=== PATIENT | male | born 1990 ===

== ENCOUNTER → 2021-01-23 09:48 | Outpatient (BNVA) | payer BC, SELFPAY | PROVIDERS: Visit Provider Nurse Practitioner Family | DX: Z20.822 Contact with and (suspected) exposure to COVID-19 (principal) | CPT/HCPCS: 87635 ==

== ENCOUNTER → 2021-02-08 14:47 | Outpatient (BNVA) | payer BC, MEDICAID, SELFPAY | PROVIDERS: Visit Provider Family Medicine Adult Medicine | DX: R63.4 Abnormal weight loss (principal); Z83.3 Family history of diabetes mellitus | CPT/HCPCS: 80053; 83036; 84443; 85025 ==

== ENCOUNTER 2021-02-18 12:28 | Observation (INO) | payer MEDICAID, SELFPAY ==
[2021-02-18] VITALS (7 sets, daily range): BP systolic 122–176; BP diastolic 77–105; PULSE 75–123; RESP 16–23; TEMP 36.9–37.5; O2SAT 97–100; BMI 27.1; BMI 26.5
[2021-02-18 14:31] LABS: Basophils # 0.1 10^3/uL (0.0-0.1); Basophils % 0.3 %; Hematocrit 46.5 % (42.0-52.0); Hemoglobin 16.1 g/dL (11.7-16.6); Lymphocytes # 2.2 10^3/uL (0.8-4.8); Lymphocytes % 11.3 %; Mean Corpuscular HGB Conc 34.6 g/dL (30.0-36.0); Mean Corpuscular Hemoglobin 29.3 pg (28.0-34.0); Mean Corpuscular Volume 84.7 fl (80-94); Mean Platelet Volume 10.9 fL (7.4-10.4); Monocytes # 1.1 10^3/uL (0.2-0.9); Monocytes % 5.7 %; Neutrophils # 16.32 10^3/uL (1.8-7.7); Neutrophils % 82.3 %; Nucleated Red Blood Cells % 0 %; Platelet Count 361 10^3/cmm (130-400); Red Blood Count 5.49 10^6/uL (4.1-5.3); Red Cell Distribution Width 11.8 % (12.1-15.1); White Blood Count 19.8 10^3/uL (4.0-10.0)
[2021-02-18 14:45] LABS: Ketone (Acetest) Serum Negative (Negative)
[2021-02-18 14:50] LABS: Alanine Aminotransferase 16 U/L (0-41); Albumin Level 5.1 g/dL (3.5-5.2); Alkaline Phosphatase 87 IU/L (40-130); Anion Gap 23.1 (5-19); Aspartate Amino Transferase 12 U/L (0-40); Blood Urea Nitrogen 15 mg/dL (6-20); Calcium 10.2 mg/dL (8.5-10.5); Carbon Dioxide 25 mmol/L (22-29); Chloride 95 mmol/L (98-107); Globulin 3.9 g/dL (1.3-4.6); Glomerular Filtration Rate 113.5 mL/min (90-130); Glucose 216 mg/dL (65-115); Lipase 16 U/L (13-60); Osmolality Calculated 297 mOsm/kg (285-295); Potassium 3.1 mmol/L (3.5-5.1); Sodium 140 mmol/L (136-145); Total Bilirubin 1.3 mg/dL (0.15-1.2)
--- NOTE | 2021-02-18 15:00 | ED_ITS ---
HPI - Nausea/Vomiting/Diarrhea General: Chief complaint: Nausea/Vomiting/Diarrhea Stated complaint: Vomiting Time Seen by Provider: 02/18/21 14:46 History of Present Illness: HPI Narrative: 31-year-old male comes in with persistent nausea and vomiting. He has had it for the last week. He was recently started on Metformin but began shortly after he started taking it. He also has had a headache. He said some coffee-ground like emesis. No hematemesis. MD elicited complaint: nausea, vomiting and abdominal pain Onset (ago): day(s) Description of vomiting: coffee grounds Associated nausea: Yes Associated abdominal pain: Yes Location of pain: Diffuse Pain consistency: intermittent Severity: moderate Quality: cramping Exacerbating factors: vomiting Relieving factors: rest Context: new medication (Metformin) Associated symtoms: Reports bloating, anorexia, malaise and nausea; Denies altered mental status, anxiety, change in vision, chest pain, cough, diaphoresis, decreased urine output, dizziness, dysuria, epistaxis, fatigue, fecal incontinence, fevers/chills, headache(s), myalgias, numbness, palpitations, rash, short of breath, syncope, tenesmus, tinnitus or weakness Review of Systems Const: Reports: malaise; Denies: fatigue or diaphoresis Eyes: Denies: change in vision ENMT: Denies: tinnitus or epistaxis Card: Denies: chest pain, palpitations or syncope Resp: Denies: dyspnea, productive cough or non-productive cough GI: Reports: nausea and bloating; Denies: fecal incontinence : Denies: dysuria Skin/Breast: Denies: rash or pruritus Neuro: Denies: headache(s) or dizziness Psych: Denies: anxiety PFSH ED PFSH: Medical History Asthma Contusion of lower back Family history of diabetes mellitus Father and two siblings Vomiting and diarrhea Weight loss, unintentional Family History Other Diabetes Social History Smoking and tobacco status: never smoked Alcohol intake: current Alcohol intake frequency: holidays/special occasions only Marital status: Number of children: 2 Current occupational status: employed Physical Exam Const: COMMON NORMALS: no acute distress EXAM LIMITATIONS: no altered mental status GENERAL APPEARANCE: cooperative and comfortable ORIENTATION/CONSCIOUSNESS: Yes awake, Yes oriented to person, Yes oriented to place and Yes oriented to time HENMT: COMMON NORMALS: normocephalic, atraumatic and hearing grossly normal bilaterally HEAD & SCALP: normocephalic and atraumatic Neck/C-Spine: COMMON NORMALS: no JVD Resp: COMMON NORMALS: normal respiratory effort, No retractions, No use of accessory muscles and clear to auscultation bilaterally AUSCULTATION: clear to auscultation bilaterally Cardio: COMMON NORMALS: no JVD, regular rate, regular rhythm and No murmurs present (Cardio) RATE: regular rate RHYTHM: regular rhythm GI: COMMON NORMALS: No hepatosplenomegaly present AUSCULTATION: Yes normoactive bowel sounds PALPATION: Yes Tenderness to palpation present (GI) (Diffuse), No Guarding due to palpation present (GI) and Yes No hepatosplenomegaly present Extremity: COMMON NORMALS: normal to inspection, capillary refill normal, no clubbing, cyanosis or edema, no calf tenderness and no pedal edema Neuro: SENSORIUM/ORIENTATION: Yes oriented to person, Yes oriented to place and Yes oriented to time Skin: COMMON NORMALS: no rashes or lesions noted GENERAL SKIN EXAM: no rashes or lesions noted Course Vital Signs: Vital signs: Vital Signs Temperature 98.2 F 02/20/21 16:54 Pulse Rate 73 02/20/21 16:54 Respiratory Rate 17 02/20/21 16:54 Blood Pressure 160/83 02/20/21 16:54 Pulse Oximetry 97 02/20/21 16:54 MDM - Nausea/Vomiting/Diarrhea MDM Narrative: Medical decision making narrative: Despite fluids multiple antiemetics patient is still not able to keep anything down still having nausea and vomiting. Suspect some of this is his Metformin. Will put on observation discussed with hospitalist orders written Lab Data: Labs: Lab Results 02/18/21 02/18/21 02/18/21 13:02 14:15 14:15 WBC 19.8 10^3/uL H 10 ^3/uL (4.0-10.0) RBC 5.49 10^6/uL H 10 ^6/uL (4.1-5.3) Hgb 16.1 g/dL g/dL (11.7-16.6) Hct 46.5 % % (42.0-52.0) MCV 84.7 fl fl (80-94) MCH 29.3 pg pg (28.0-34.0) MCHC 34.6 g/dL g/dL (30.0-36.0) RDW 11.8 % L % (12.1-15.1) Plt Count 361 10^3/cmm 10^3 /cmm (130-400) MPV 10.9 fL H fL (7.4-10.4) Neut % (Auto) 82.3 % % Lymph % (Auto) 11.3 % % Powell % (Auto) 5.7 % % Eos % (Auto) 0.0 % % Baso % (Auto) 0.3 % % Neut # (Auto) 16.32 10^3/uL H 1 0^3/uL (1.8-7.7) Lymph # (Auto) 2.2 10^3/uL 10^3/ uL (0.8-4.8) Powell # (Auto) 1.1 10^3/uL H 10^ 3/uL (0.2-0.9) Eos # (Auto) 0.0 10^3/uL 10^3/ uL (0.0-0.8) Baso # (Auto) 0.1 10^3/uL 10^3/ uL (0.0-0.1) Nucleated RBC % (a uto) 0 % % Nucleated RBCs # 0.0 /100WBC /100W BC Specimen Type Sample Site ABG pH ABG pCO2 ABG pO2 ABG HCO3 ABG O2 Saturation ABG Base Excess Sina Test A-a O2 Gradient Hematocrit Hgb O2 Saturation Carboxyhemoglobin Methemoglobin Total Hemoglobin Ionized Calcium O2 Delivery Device FiO2 Dairy Cattle Farm Worker ID Sodium 140 mmol/L mmol/L (136-145) Potassium 3.1 mmol/L L mmol /L (3.5-5.1) Chloride 95 mmol/L L mmol/ L (98-107) Carbon Dioxide 25 mmol/L mmol/L (22-29) Anion Gap 23.1 H (5-19) BUN 15 mg/dL mg/dL (6-20) Creatinine 0.8 mg/dL mg/dL (0.7-1.2) GFR Calculation 113.5 mL/min mL/m in (90-130) Glucose 216 mg/dL H mg/dL (65-115) POC Glucose 230 mg/dL H mg/dL (70-110) Calculated Osmolal ity 297 mOsm/kg H mOs m/kg (285-295) Calcium 10.2 mg/dL mg/dL (8.5-10.5) Total Bilirubin 1.3 mg/dL H mg/dL (0.15-1.2) AST 12 U/L U/L (0-40) ALT 16 U/L U/L (0-41) Alkaline Phosphata se 87 IU/L IU/L (40-130) Total Protein 9.0 g/dL H g/dL (6.6-8.7) Albumin 5.1 g/dL g/dL (3.5-5.2) Globulin 3.9 g/dL g/dL (1.3-4.6) Lipase 16 U/L U/L (13-60) Gastric Occult Blo od Serum Ketones 02/18/21 02/18/21 02/18/21 14:15 15:15 15:33 WBC RBC Hgb Hct MCV MCH MCHC RDW Plt Count MPV Neut % (Auto) Lymph % (Auto) Powell % (Auto) Eos % (Auto) Baso % (Auto) Neut # (Auto) Lymph # (Auto) Powell # (Auto) Eos # (Auto) Baso # (Auto) Nucleated RBC % (a uto) Nucleated RBCs # Specimen Type Arterial Sample Site Brachial, right ABG pH 7.59 H* (7.35-7.45) ABG pCO2 23.8 mmHg L mmHg (35-45) ABG pO2 103.0 mmHg H mmHg (80.0-100.0) ABG HCO3 23.0 mmol/L mmol/ L (22-26) ABG O2 Saturation 99.2 ABG Base Excess 3.3 mmol/L H mmol /L (-2.0-2.0) Sina Test N/a A-a O2 Gradient 2.0 mmHg L mmHg (5-10) Hematocrit 51.4 % % (42-52) Hgb O2 Saturation 97.9 % % (95-100) Carboxyhemoglobin 0.7 %THgb %THgb (0.4-20.1) Methemoglobin 0.7 % % (0.4-1.5) Total Hemoglobin 16.8 g/dL g/dL (14-18) Ionized Calcium 1.2 mmol/L mmol/L (1.1-1.4) O2 Delivery Device Not Reportable FiO2 21.0 % % Dairy Cattle Farm Worker ID Rieri Sodium 142.0 mmol/L mmol /L (131-143) Potassium 3.2 mmol/L L mmol /L (3.5-5.0) Chloride Carbon Dioxide Anion Gap BUN Creatinine GFR Calculation Glucose 237.0 mg/dL H mg/ dL (70-115) POC Glucose Calculated Osmolal ity Calcium Total Bilirubin AST ALT Alkaline Phosphata se Total Protein Albumin Globulin Lipase Gastric Occult Blo od Positive H (Negative) Serum Ketones Negative (Negative) Discharge Plan Discharge Admit Provider: Karmen Quintana Condition: Stable Discharge Orders: Discharge Order (Routine); Ordered 02/20/21 Ordered By: Karmen Quintana Discharge Diet: Diabetic and GI Soft Discharge Activity: Resume usual activity Coding Level of Care Code ED Vocational Guidance Counselor for Chg Fwd Exam Comprehensive
[2021-02-18 15:24] LABS: ABG PCO2 23.8 mmHg (35-45); Arterial Blood Gas Hematocrit 51.4 % (42-52); Base Excess ABG 3.3 mmol/L (-2.0-2.0); Blood Gas Sample Site Brachial, right; Blood Gas Sample Type Arterial; Carboxyhemoglobin 0.7 %THgb (0.4-20.1); HGB O2 Sat 97.9 % (95-100); Ionized Calcium Level - ABG 1.2 mmol/L (1.1-1.4); Methemoglobin 0.7 % (0.4-1.5); Oxygen Saturation ABG 99.2; Potassium Level - ABG 3.2 mmol/L (3.5-5.0); Total Hemoglobin 16.8 g/dL (14-18)
[2021-02-18 15:28] LABS: ABG PH Result 7.59 (7.35-7.45)
[2021-02-18] MEDS: morphine 4 mg/mL SDV 1 mL IVP (15:32)
[2021-02-18] MEDS: promethazine 25 mg/mL SDV 1 mL IM (15:33)
[2021-02-18] MEDS: sodium chloride 0.9% 1,000 ML 999 ML IV (15:33)
[2021-02-18 16:06] LABS: Gastricult Occult Blood Positive (Negative)
--- NOTE | 2021-02-18 18:14 | P.HP_ITS ---
Providers/Chief Complaint Chief Complaint: Vomiting History of Present Illness Obdulio Barkley is a 31 year old male with history of asthma on albuterol inhaler as needed and recently diagnosed with diabetes 1 week ago for next of the ER with nausea vomiting that he says started about a week ago. He said 1 week ago it got worse where he has been vomiting every day but overall it has been going on for almost a year now. He has also lost a lot of weight and unable to keep any water or food down. He says 1 week ago he started to worsen and today was the worst day and therefore he came to the ER. He has never had an endoscopy or colonoscopy before. He denies having any of these problems in his family members. He does state that his brother and father have diabetes. He says he started taking metformin today and feels that may have exacerbated the nausea vomiting. Patient is a former smoker he quit 2 months ago is a former alcohol drinker quit 2 months ago and does smoke weed from time to time but has recently has not had any. Denies having any blood in the stool he did have an episode of emesis with coffee-ground material in the ER today. FOBT done by ER was positive. Denies chest pain, shortness of breath. Does endorse some epigastric pain but attributes it to the continuous retching that he is having. Has not had any fevers at home or recent illnesses. Hemoglobin A1c checked recently 7.0. He did have a little bit of diarrhea which has resolved by now. When seen in the room by medicine hospitalist patient was actively shaking. ED course: On arrival to ER blood pressure 142/90, saturating 100% on room air, tachycardic 123, temperature 99.5. Serum ketones negative, anion gap 23.1, WBC 19.5, potassium 3.1. He was given morphine 4 mg, 80 mg IV Protonix, Phenergan 25 mg once. Due to FOBT being positive Dr. Bee was called for potential endoscopy in the morning. Patient has been kept n.p.o. Urine culture was also ordered including urinalysis but patient refused to give a urine sample as per nursing staff. Review of Systems General: Reports: 10 or more systems reviewed and unremarkable except in HPI and below Medications/Allergies Home Medications Medication Instructions Recorded Confirmed Last Taken Type albuterol sulfate 90 mcg/actuation 2 puff INHALATION Q6H PRN #8.5 g 01/25/21 02/18/21 Unknown Rx aerosol inhaler metformin 500 mg PO DAILY@12 02/18/21 02/18/21 02/17/21 History Allergies Allergy/AdvReac Type Severity Reaction Status Date / Time Penicillins Allergy Unknown unknown Verified 02/18/21 16:03 PFSH Acute PFSH: Medical History Asthma Contusion of lower back Family history of diabetes mellitus Father and two siblings Vomiting and diarrhea Weight loss, unintentional Family History Other Diabetes Social History Smoking and tobacco status: never smoked Alcohol intake: current Alcohol intake frequency: holidays/special occasions only Marital status: Number of children: 2 Current occupational status: employed Vitals/I&O/Wt Last Vital Signs Temp 99.5 F 02/18/21 12:52 Pulse 83 02/18/21 15:58 Resp 18 02/18/21 15:58 BP 162/95 02/18/21 15:58 Pulse Ox 98 02/18/21 15:58 Weight last 48 hrs Weight 69.4 kg Physical Exam Narrative: EXAM NARRATIVE: General: Alert oriented x3, patient seen sitting up in bed holding a tray and continuously spitting into it due to nausea. He also vomited while I was in the room. Vomitus was clear with no evidence of any blood. There is another tray in the room with coffee-ground emesis. HEENT: Normocephalic, atraumatic, EOMI, breathing room air Cardio: Regular rate rhythm, normal S1-S2, no murmurs rubs gallops, Respiratory: Good bilateral air entry, no wheezes no rhonchi appreciated GI: Abdomen soft, tender to deep palpation in epigastric region, nondistended, bowel sounds normoactive. Behavior: Appropriate and cooperative, appears a little worried Extremities: Pulses 2+, no edema, no cyanosis Data : 02/19/21 05:04 02/19/21 05:04 A&P Assessment and plan (1) Vomiting: Status: Acute (2) Coffee ground emesis: Status: Acute (3) Weight loss, unintentional: Status: Acute (4) Asthma: Status: Acute (5) Occult blood positive stool: Status: Acute Additional A&P Information #Possible cyclic vomiting syndrome from marijuana use #Possible Laura-Cates tear #Coffee-ground emesis mixed with some fresh blood -Unclear if patient has recently used marijuana but he denied it. His vomiting has been going on for about a year worsened last week and today was worse after taking Metformin. It could be possible that he has a component of cyclic vomiting syndrome from marijuana use. Urine tox was ordered but patient refused to give a urine sample. -Protonix 40 twice daily ?Keep patient n.p.o. We will discuss with GI for potential endoscope. With the continuous vomiting and retching that could be a possible reason for his coffee-ground emesis with some fresh blood. However I believe he would benefit from endoscope just to rule out other causes. ?He has also had unintentional weight loss which diabetes could explain. Unsure at this point if it is type I or type II. I will refer him to endocrinology as an outpatient upon discharge to follow-up. ?Patient does not appear to be in DKA at this time. He does appear very dehydrated we will give him IV fluids. ?Zofran every 4 hours for nausea. If that does not control the nausea we can add Phenergan -Lactated Ringer 100 cc/h -We will place patient on low-dose sliding scale at this time. -His last labs are from this afternoon 2 PM. I will repeat all his labs at this time. I will also order a CT chest abdomen pelvis due to patient's physical exam findings of abdominal pain and given his high white count which could very well be a stress response. -I have also ordered urinalysis with culture but patient has refused to give a sample. We will check blood cultures. -Patient was shaking quite a bit when seen in the room unsure if withdrawing from something at this point. I did give 1 dose of Ativan 1 mg. #Asthma ?Seems to be stable at this point. Patient occasionally uses inhaler and does not have any nighttime awakenings. I will order duo nebs for him as needed. #Fluids: LR 100 cc/h Electrolyte: Replete as needed Nutrition: N.p.o. Activity: As tolerated DVT prophylaxis: Mechanical prophylaxis at this point we will hold off on pharmacological at this time. Attestations Medical Necessity Statement*: Expected to cross greater than 48 hours unless improves earlier. Time Spent in Patient Care: 16 - 35 minutes Coding Level of Care Code Acute Business Intelligence Architect for Browng Fwd Diagnoses Vomiting R11.10 Coffee ground emesis K92.0 Weight loss, unintentional R63.4 Asthma J45.909 Occult blood positive stool R19.5
[2021-02-18] MEDS: pantoprazole 40 mg SDV 80 MG IVP (18:41)
--- NOTE | 2021-02-18 19:32 | PC.NURSE ---
Med Surg concerned with pt's BP. Dr. Quintana made aware and states that pt is fine to go to floor. Attempted to call med surg, no answer.
--- NOTE | 2021-02-18 19:43 | CTR_ITS ---
PROCEDURE INFORMATION: Exam: CT Chest With Contrast; Diagnostic Exam date and time: 02/18/2021 7:43 PM Age: 31 years old Clinical indication: Nausea and vomiting; Abdominal pain; Fever; Right-sided; Additional info: Intractable n/v, epigastric pain TECHNIQUE: Imaging protocol: Diagnostic computed tomography of the chest with contrast. Radiation optimization: All CT scans at this facility use at least one of these dose optimization techniques: automated exposure control; mA and/or kV adjustment per patient size (includes targeted exams where dose is matched to clinical indication); or iterative reconstruction. Contrast material: OMNI 300; Contrast volume: 95 ml; Contrast route: INTRAVENOUS (IV); COMPARISON: No relevant prior studies available. RADIATION DOSE METRICS: Total DLP (mGy-cm): 1400.28 FINDINGS: Lungs: Bilateral dependent atelectasis versus infiltrate. Pleural spaces: Unremarkable. No pneumothorax. No pleural effusion. Heart: Unremarkable. No cardiomegaly. No pericardial effusion. Aorta: Unremarkable. No aortic aneurysm. Lymph nodes: Unremarkable. No enlarged lymph nodes. Bones/joints: Unremarkable. No acute fracture. Soft tissues: Unremarkable. IMPRESSION: Bilateral dependent atelectasis versus infiltrate. PROCEDURE INFORMATION: Exam: CT Abdomen And Pelvis With Contrast Exam date and time: 02/18/2021 7:43 PM Age: 31 years old Clinical indication: Nausea and vomiting; Abdominal pain; Fever; Right-sided; Additional info: Intractable n/v, epigastric pain TECHNIQUE: Imaging protocol: Computed tomography of the abdomen and pelvis with contrast. Radiation optimization: All CT scans at this facility use at least one of these dose optimization techniques: automated exposure control; mA and/or kV adjustment per patient size (includes targeted exams where dose is matched to clinical indication); or iterative reconstruction. Contrast material: OMNI 300; Contrast volume: 95 ml; Contrast route: INTRAVENOUS (IV); COMPARISON: No relevant prior studies available. RADIATION DOSE METRICS: Total DLP (mGy-cm): 1400.28 FINDINGS: Liver: Hepatic steatosis. Gallbladder and bile ducts: Normal. No calcified stones. No ductal dilation. Pancreas: Normal. No ductal dilation. Spleen: Normal. No splenomegaly. Adrenal glands: Normal. No mass. Kidneys and ureters: Normal. No hydronephrosis. Stomach and bowel: Unremarkable. No obstruction. No mucosal thickening. Appendix: No evidence of appendicitis. Intraperitoneal space: Unremarkable. No free air. No significant fluid collection. Vasculature: Unremarkable. No abdominal aortic aneurysm. Lymph nodes: Unremarkable. No enlarged lymph nodes. Urinary bladder: Unremarkable as visualized. Reproductive: Unremarkable as visualized. Bones/joints: Unremarkable. No acute fracture. Soft tissues: Unremarkable. CT/CT chest abd pel w con* IMPRESSION: 1. Negative for acute inflammatory process in the abdomen or pelvis. 2. Hepatic steatosis. Radiation Dose CTDIVOL = (mGy): DLP = 1400.28~1400.28 (mGy-cm)
--- NOTE | 2021-02-18 19:43 | ECG_ITS ---
[facility] Test Date: 2021-02-18 Pat Name: Obdulio Barkley Department: Room: 254 Gender: Male Ammonia Nitrate Operator: : 1990 Requested By: Karmen Quintana Order Number: [id number] Dawn MD: Geri Arauz M.D. Measurements Intervals [place] Rate: 80 P: 35 MA: 169 QRS: 17 QRSD: 98 T: 12 QT: 361 QTc: 418 Interpretive Statements SINUS RHYTHM No previous ECG available for comparison Electronically Signed On 02-18-2021 23:51:50 CDT by Geri Arauz M.D. [email or web address]
[2021-02-18] MEDS: ondansetron 2 mg/ML SDV 2 mL 4 MG IVP (20:01)
[2021-02-18] MEDS: pantoprazole 40 mg SDV IVP (20:01)
[2021-02-18] MEDS: LORazepam 2 mg/mL INJ 1 mL 1 MG IVP (20:40)
[2021-02-18] MEDS: lactated ringers 1,000 ML 100 ML IV (20:41)
[2021-02-18 20:42] LABS: Glucose Point of Care 230 mg/dL (70-110)
[2021-02-18 20:48] LABS: Base Excess VBG 1.2 mmol/L (-3.0-3.0); Blood Gas Operator Identificat glc; Blood Gas Sample Type Venous; PCO2 VBG 36.4 mmHg (41-51); PO2 VBG 44.3 mmHg (25-40); Venous Blood Gas Hematocrit 46.1 % (42-52); pH VBG 7.45 (7.32-7.42)
[2021-02-18 21:01] LABS: Basophils # 0.1 10^3/uL (0.0-0.1); Basophils % 0.3 %; Hematocrit 39.9 % (42.0-52.0); Hemoglobin 13.8 g/dL (11.7-16.6); Lymphocytes # 2.1 10^3/uL (0.8-4.8); Mean Corpuscular HGB Conc 34.6 g/dL (30.0-36.0); Mean Corpuscular Hemoglobin 29.9 pg (28.0-34.0); Mean Corpuscular Volume 86.4 fl (80-94); Mean Platelet Volume 10.9 fL (7.4-10.4); Monocytes # 1.2 10^3/uL (0.2-0.9); Monocytes % 6.3 %; Neutrophils # 15.31 10^3/uL (1.8-7.7); Neutrophils % 81.8 %; Nucleated Red Blood Cells % 0 %; Platelet Count 284 10^3/cmm (130-400); Red Blood Count 4.62 10^6/uL (4.1-5.3); White Blood Count 18.7 10^3/uL (4.0-10.0)
[2021-02-18 21:06] LABS: Lactic Sepsis W/Reflex 1.5 mmol/L (0.5-2.2)
[2021-02-18 21:09] LABS: Ketone (Acetest) Serum Negative (Negative)
[2021-02-18 21:18] LABS: Troponin T (5th) Once 14 ng/L (0-15)
[2021-02-18 21:31] LABS: Glucose Point of Care 165 mg/dL (70-110)
[2021-02-18 21:31] LABS: Alanine Aminotransferase 12 U/L (0-41); Albumin Level 4.1 g/dL (3.5-5.2); Alkaline Phosphatase 67 IU/L (40-130); Anion Gap 17.6 (5-19); Aspartate Amino Transferase 10 U/L (0-40); Blood Urea Nitrogen 13 mg/dL (6-20); Calcium 8.7 mg/dL (8.5-10.5); Carbon Dioxide 23 mmol/L (22-29); Chloride 104 mmol/L (98-107); Globulin 3.3 g/dL (1.3-4.6); Glomerular Filtration Rate 158.2 mL/min (90-130); Glucose 169 mg/dL (65-115); Osmolality Calculated 296 mOsm/kg (285-295); Phosphorus 3.7 mg/dL (2.5-4.5); Potassium 3.6 mmol/L (3.5-5.1); Sodium 141 mmol/L (136-145); Total Protein 7.4 g/dL (6.6-8.7)
[2021-02-18] MEDS: iohexol 300 mg/mL 100 mL Btl IV (21:47)
[2021-02-18 22:24] LABS: Procalcitonin 0.03 ng/mL (0-0.5)
[2021-02-19] VITALS (8 sets, daily range): BP systolic 116–142; BP diastolic 58–83; PULSE 75–97; RESP 14–20; TEMP 36.5–37.2; O2SAT 96–98
[2021-02-19 05:25] LABS: Basophils # 0.1 10^3/uL (0.0-0.1); Basophils % 0.3 %; Eosinophils % 0.2 %; Hematocrit 39.1 % (42.0-52.0); Hemoglobin 13.7 g/dL (11.7-16.6); Lymphocytes # 2.6 10^3/uL (0.8-4.8); Lymphocytes % 15.7 %; Mean Corpuscular Hemoglobin 30.2 pg (28.0-34.0); Mean Corpuscular Volume 86.3 fl (80-94); Mean Platelet Volume 10.6 fL (7.4-10.4); Monocytes # 1.1 10^3/uL (0.2-0.9); Monocytes % 6.6 %; Neutrophils % 76.8 %; Nucleated Red Blood Cells % 0 %; Platelet Count 271 10^3/cmm (130-400); Red Blood Count 4.53 10^6/uL (4.1-5.3); Red Cell Distribution Width 12.3 % (12.1-15.1); White Blood Count 16.4 10^3/uL (4.0-10.0)
[2021-02-19 06:13] LABS: Alanine Aminotransferase 11 U/L (0-41); Albumin Level 4.1 g/dL (3.5-5.2); Alkaline Phosphatase 71 IU/L (40-130); Anion Gap 14.6 (5-19); Aspartate Amino Transferase 11 U/L (0-40); Blood Urea Nitrogen 11 mg/dL (6-20); Carbon Dioxide 25 mmol/L (22-29); Chloride 103 mmol/L (98-107); Chol HDL Ratio 3.42 mg/dL (1.0-5.00); Cholesterol 130 mg/dL (0-200); Globulin 3.2 g/dL (1.3-4.6); Glomerular Filtration Rate 132.4 mL/min (90-130); Glucose 134 mg/dL (65-115); HDL Cholesterol 38 mg/dL (60-100); LDL Cholesterol Calculated 69 mg/dL (50-129); LDL HDL Ratio 1.82 RATIO (0.00-3.22); Osmolality Calculated 289 mOsm/kg (285-295); Potassium 3.6 mmol/L (3.5-5.1); Sodium 139 mmol/L (136-145); Thyroid Stimulating Hormone 0.66 uIU/mL (0.27-4.20); Total Bilirubin 1.1 mg/dL (0.15-1.2); Total Protein 7.3 g/dL (6.6-8.7); Triglycerides 117 mg/dL (0-150)
[2021-02-19 06:23] LABS: Glucose Point of Care 134 mg/dL (70-110)
[2021-02-19 06:41] LABS: Estmated Average Glucose 151; Hemoglobin A1C 6.9 % (4.0-6.0)
--- NOTE | 2021-02-19 08:04 | PM.PN ---
Subjective Subjective: Interval history: Seen this morning. He will be going for endoscope at 1:[address] Bee. He states he feels better and has not had any more vomiting. He slept well last night. Vitals/I&O/Wt Last Vital Signs Temp 99.0 F 02/19/21 07:41 Pulse 93 02/19/21 07:41 Resp 14 02/19/21 07:41 BP 142/82 02/19/21 07:41 Pulse Ox 97 02/19/21 07:41 02/18/21 02/19/21 02/19/21 22:59 06:59 14:59 Intake Total 1000 / 1000 Output Total 0 / 0 Balance 1000 / 1000 0 / 1000 Weight last 48 hrs Weight 68.039 kg Weight 69.4 kg Physical Exam Narrative: EXAM NARRATIVE: General: Alert oriented x3, laying in bed appearing better than yesterday and comfortable. HEENT: Normocephalic, atraumatic, EOMI, breathing room air Cardio: Regular rate rhythm, normal S1-S2, no murmurs rubs gallops, Respiratory: Good bilateral air entry, no wheezes no rhonchi appreciated GI: Abdomen soft, mildly tender to deep palpation in epigastric region, nondistended, bowel sounds normoactive. exam improved from yesterday Behavior: Appropriate and cooperative, appears a little worried Extremities: Pulses 2+, no edema, no cyanosis Data : 02/19/21 05:04 02/19/21 05:04 Micro: Microbiology 02/18/21 20:35 Blood Culture - Preliminary Blood SPECIMEN COLLECTED 02/18/21 20:40 Blood Culture - Preliminary Blood SPECIMEN COLLECTED A&P Assessment and plan (1) Vomiting: Status: Acute (2) Coffee ground emesis: Status: Acute (3) Weight loss, unintentional: Status: Acute (4) Asthma: Status: Acute (5) Occult blood positive stool: Status: Acute Additional A&P Information #Possible cyclic vomiting syndrome from marijuana use #Gastritis #Possible Laura-Cates tear #Coffee-ground emesis mixed with some fresh blood -Unclear if patient has recently used marijuana but he denied it. His vomiting has been going on for about a year worsened last week and today was worse after taking Metformin. It could be possible that he has a component of cyclic vomiting syndrome from marijuana use. Urine tox was ordered but patient refused to give a urine sample. -Protonix 40 twice daily ?Keep patient n.p.o. Will go for endoscope today. ?He has also had unintentional weight loss which diabetes could explain. Unsure at this point if it is type I or type II. I will refer him to endocrinology as an outpatient upon discharge to follow-up. ?Will start clear liquids post endoscope. ?Zofran every 4 hours for nausea. -We will place patient on low-dose sliding scale at this time. -Urine positive for benzo, opiate and THC. #Asthma ?Seems to be stable at this point. Patient occasionally uses inhaler and does not have any nighttime awakenings. I will order duo nebs for him as needed. #Fluids: none Electrolyte: Replete as needed Nutrition: advance diet to clear liquids Activity: As tolerated DVT prophylaxis: Mechanical prophylaxis at this point we will hold off on pharmacological at this time. Attestations Medical Necessity Statement*: possible dc in next 24 hours. awaiting results of h.pylori test. Coding Level of Care Code Acute Powertrain Control Systems Engineer for Erica Fwd Diagnoses Vomiting R11.10 Coffee ground emesis K92.0 Weight loss, unintentional R63.4 Asthma J45.909 Occult blood positive stool R19.5
[2021-02-19] MEDS: lactated ringers 1,000 ML 100 ML IV ×3 (09:32→23:21)
[2021-02-19 09:34] LABS: Add Urine Microscopic? NO; Charge for UA Resulting for Rev
[2021-02-19 09:43] LABS: Bilirubin Urine Neg (Negative); Blood Urine Neg (Negative); Glucose Urine UA 1+ (Normal); Ketones Urine 1+ (Negative); Leukocyte Esterase Urine Negative (Negative); Nitrate Urine Negative (Negative); Protein Urine Neg (Negative); Urine Appearance Clear (CLEAR); Urine Color Yellow (Yellow); Urobilinogen Urine 4 mg/dL (Negative); pH Urine 7 (5-7)
[2021-02-19 09:51] LABS: Amphetamines Screen Urine Negative (Negative); Barbiturates Screen Urine Negative (Negative); Benzodiazepines Screen Urine Positive (Negative); Cocaine Screen Urine Negative (Negative); Opiate Screen Urine Positive (Negative); PCP Screen Urine Negative (Negative); THC Screen Urine Positive (Negative)
--- NOTE | 2021-02-19 10:17 | ANES.PREANE2 ---
Pre-Anesthetic Assessment Pre-Anesthetic Assessment: Height/Weight: Height 1.6 m Weight 68.039 kg Temp Pulse Resp BP Pulse Ox 98.7 F 90 18 138/83 98 02/19/21 10:10 02/19/21 10:10 02/19/21 10:10 02/19/21 10:10 02/19/21 10:10 Preop Diagnosis: coffee ground emesis Proposed Procedure: Operation Date: 02/19/21 11:30 Proposed Procedures p EGD(Not Applicable) - Yuri Bee MD Familial anesthetic complications: none Was Beta Martina taken within 24 hours: N/A Was Clonidine taken within 24 hours: N/A Last intake: Intake Last Liquid Date 02/17/21 Last Liquid Time 09:00 Last Solid Date 02/17/21 Last Solid Time 09:00 Social: Social History: Tobacco (quit 2 months ago) and No alcohol Exam: Pre-Anes Outpt Exam: alert, oriented x 3, clear to auscultation bilaterally and regular rate & rhythm Airway: Submandibular: WNL Cervical ROM: WNL MP: 1 Dentition: Full Pulmonary: Pulmonary: Asthma CV/HEM: CV/HEM: None reported : : None reported Hepatic: Hepatic: None reported GI: GI: GERD Metabolic: Metabolic: DM Musc/skel: Musc/skel: None reported Neuropsych: Neuropsych: None reported Anesthetic Plan: ASA status: 2 Anesthesia: MAC Risk of > 500 ml blood loss (7ml/kg in children): No Meds/Allergies Current Medications: Current Medications Generic Name Dose Route Start Last Admin Trade Name Freq PRN Reason Stop Dose Admin Lactated Ringer's 1,000 mls @ 100 m ls/hr 02/18/21 19:45 02/19/21 09:32 Lactated Ringers IV 100 mls/hr .Q10H AAMIR Administration Insulin Human Lisp ro 0 unit 02/19/21 08:00 02/19/21 08:25 Insulin Lispro 1 00 Unit/1 Ml SUBCUT Not Given TIDWM AAMIR Protocol Ondansetron HCl 4 mg 02/18/21 19:52 02/18/21 20:01 Ondansetron 2 Mg /Ml Sdv 2 Ml IVP 4 mg Q4H PRN Administration NAUSEA AND VOMITI NG Pantoprazole Sodiu m 40 mg 02/18/21 19:45 02/18/21 20:01 Pantoprazole 40 Mg Sdv IVP 40 mg Q24H AAMIR Administration PFSH Anesthesia PFSH: Medical History Asthma Contusion of lower back Family history of diabetes mellitus Father and two siblings Vomiting and diarrhea Weight loss, unintentional Family History Other Diabetes Social History Smoking and tobacco status: never smoked Alcohol intake: current Alcohol intake frequency: holidays/special occasions only Marital status: Number of children: 2 Current occupational status: employed Data Anesthesia CBC & Chem 7: 02/19/21 05:04 02/19/21 05:04 Other Labs: Laboratory Results - last 48 hr 02/18/21 02/18/21 02/18/21 13:02 14:15 14:15 WBC 19.8 H RBC 5.49 H Hgb 16.1 Hct 46.5 MCV 84.7 MCH 29.3 MCHC 34.6 RDW 11.8 L Plt Count 361 MPV 10.9 H Neut % (Auto) 82.3 Lymph % (Auto) 11.3 [place] % (Auto) 5.7 Eos % (Auto) 0.0 Baso % (Auto) 0.3 Neut # (Auto) 16.32 H Lymph # (Auto) 2.2 [place] # (Auto) 1.1 H Eos # (Auto) 0.0 Baso # (Auto) 0.1 Nucleated RBC % (auto) 0 Nucleated RBCs # 0.0 Specimen Type Sample Site ABG pH ABG pCO2 ABG pO2 ABG HCO3 ABG O2 Saturation ABG Base Excess Sina Test VBG pH VBG pCO2 VBG pO2 VBG HCO3 VBG Base Excess VBG Hematocrit A-a O2 Gradient Hematocrit Hgb O2 Saturation Carboxyhemoglobin Methemoglobin Total Hemoglobin Ionized Calcium O2 Delivery Device FiO2 Flatwork Tier ID Sodium 140 Potassium 3.1 L Chloride 95 L Carbon Dioxide 25 Anion Gap 23.1 H BUN 15 Creatinine 0.8 GFR Calculation 113.5 Glucose 216 H POC Glucose 230 H Estimat Average Glucose Hemoglobin A1c Calculated Osmolality 297 H Lactic Acid Calcium 10.2 Phosphorus Magnesium Total Bilirubin 1.3 H AST 12 ALT 16 Alkaline Phosphatase 87 Troponin T Gen 5 ng/L Total Protein 9.0 H Albumin 5.1 Globulin 3.9 Triglycerides Cholesterol LDL Cholesterol, Calc HDL Cholesterol LDL/HDL Ratio Cholesterol/HDL Ratio Lipase 16 Procalcitonin TSH Urine Color Urine Appearance Urine pH Ur Specific [place] Urine Protein Urine Glucose (UA) Urine Ketones Urine Blood Urine Nitrate Urine Bilirubin Urine Urobilinogen Ur Leukocyte Esterase Gastric Occult Blood Urine Opiates Screen Ur Barbiturates Screen Ur Phencyclidine Scrn Ur Amphetamines Screen U Benzodiazepines Scrn Urine Cocaine Screen U Marijuana (THC) Screen Serum Ketones 02/18/21 02/18/21 02/18/21 14:15 15:15 15:33 WBC RBC Hgb Hct MCV MCH MCHC RDW Plt Count MPV Neut % (Auto) Lymph % (Auto) [place] % (Auto) Eos % (Auto) Baso % (Auto) Neut # (Auto) Lymph # (Auto) [place] # (Auto) Eos # (Auto) Baso # (Auto) Nucleated RBC % (auto) Nucleated RBCs # Specimen Type Arterial Sample Site Brachial, right ABG pH 7.59 H* ABG pCO2 23.8 L ABG pO2 103.0 H ABG HCO3 23.0 ABG O2 Saturation 99.2 ABG Base Excess 3.3 H Sina Test N/a VBG pH VBG pCO2 VBG pO2 VBG HCO3 VBG Base Excess VBG Hematocrit A-a O2 Gradient 2.0 L Hematocrit 51.4 Hgb O2 Saturation 97.9 Carboxyhemoglobin 0.7 Methemoglobin 0.7 Total Hemoglobin 16.8 Ionized Calcium 1.2 O2 Delivery Device Not Reportable FiO2 21.0 Flatwork Tier ID Rieri Sodium 142.0 Potassium 3.2 L Chloride Carbon Dioxide Anion Gap BUN Creatinine GFR Calculation Glucose 237.0 H POC Glucose Estimat Average Glucose Hemoglobin A1c Calculated Osmolality Lactic Acid Calcium Phosphorus Magnesium Total Bilirubin AST ALT Alkaline Phosphatase Troponin T Gen 5 ng/L Total Protein Albumin Globulin Triglycerides Cholesterol LDL Cholesterol, Calc HDL Cholesterol LDL/HDL Ratio Cholesterol/HDL Ratio Lipase Procalcitonin TSH Urine Color Urine Appearance Urine pH Ur Specific [place] Urine Protein Urine Glucose (UA) Urine Ketones Urine Blood Urine Nitrate Urine Bilirubin Urine Urobilinogen Ur Leukocyte Esterase Gastric Occult Blood Positive H Urine Opiates Screen Ur Barbiturates Screen Ur Phencyclidine Scrn Ur Amphetamines Screen U Benzodiazepines Scrn Urine Cocaine Screen U Marijuana (THC) Screen Serum Ketones Negative 02/18/21 02/18/21 02/18/21 20:35 20:40 20:40 WBC 18.7 H RBC 4.62 Hgb 13.8 Hct 39.9 L MCV 86.4 MCH 29.9 MCHC 34.6 RDW 12.0 L Plt Count 284 MPV 10.9 H Neut % (Auto) 81.8 Lymph % (Auto) 11.0 [place] % (Auto) 6.3 Eos % (Auto) 0.0 Baso % (Auto) 0.3 Neut # (Auto) 15.31 H Lymph # (Auto) 2.1 [place] # (Auto) 1.2 H Eos # (Auto) 0.0 Baso # (Auto) 0.1 Nucleated RBC % (auto) 0 Nucleated RBCs # 0.0 Specimen Type Venous Sample Site Not Reportable ABG pH ABG pCO2 ABG pO2 ABG HCO3 ABG O2 Saturation ABG Base Excess Sina Test N/a VBG pH 7.45 H VBG pCO2 36.4 L VBG pO2 44.3 H VBG HCO3 25.0 VBG Base Excess 1.2 VBG Hematocrit 46.1 A-a O2 Gradient Hematocrit Hgb O2 Saturation Carboxyhemoglobin Methemoglobin Total Hemoglobin Ionized Calcium O2 Delivery Device Not Reportable FiO2 [place] Tier ID glc Sodium 141 Potassium 3.6 Chloride 104 Carbon Dioxide 23 Anion Gap 17.6 BUN 13 Creatinine 0.6 L GFR Calculation 158.2 H Glucose 169 H POC Glucose Estimat Average Glucose Hemoglobin A1c Calculated Osmolality 296 H Lactic Acid Calcium 8.7 Phosphorus 3.7 Magnesium 2.0 Total Bilirubin 1.0 AST 10 ALT 12 Alkaline Phosphatase 67 Troponin T Gen 5 ng/L Total Protein 7.4 Albumin 4.1 Globulin 3.3 Triglycerides Cholesterol LDL Cholesterol, Calc HDL Cholesterol LDL/HDL Ratio Cholesterol/HDL Ratio Lipase Procalcitonin 0.03 TSH Urine Color Urine Appearance Urine pH Ur Specific [place] Urine Protein Urine Glucose (UA) Urine Ketones Urine Blood Urine Nitrate Urine Bilirubin Urine Urobilinogen Ur Leukocyte Esterase Gastric Occult Blood Urine Opiates Screen Ur Barbiturates Screen Ur Phencyclidine Scrn Ur Amphetamines Screen U Benzodiazepines Scrn Urine Cocaine Screen U Marijuana (THC) Screen Serum Ketones 02/18/21 02/18/21 02/18/21 20:40 20:40 20:40 WBC RBC Hgb Hct MCV MCH MCHC RDW Plt Count MPV Neut % (Auto) Lymph % (Auto) [place] % (Auto) Eos % (Auto) Baso % (Auto) Neut # (Auto) Lymph # (Auto) [place] # (Auto) Eos # (Auto) Baso # (Auto) Nucleated RBC % (auto) Nucleated RBCs # Specimen Type Sample Site ABG pH ABG pCO2 ABG pO2 ABG HCO3 ABG O2 Saturation ABG Base Excess Sina Test VBG pH VBG pCO2 VBG pO2 VBG HCO3 VBG Base Excess VBG Hematocrit A-a O2 Gradient Hematocrit Hgb O2 Saturation Carboxyhemoglobin Methemoglobin Total Hemoglobin Ionized Calcium O2 Delivery Device FiO2 Flat[place] Tier ID Sodium Potassium Chloride Carbon Dioxide Anion Gap BUN Creatinine GFR Calculation Glucose POC Glucose Estimat Average Glucose Hemoglobin A1c Calculated Osmolality Lactic Acid 1.5 Calcium Phosphorus Magnesium Total Bilirubin AST ALT Alkaline Phosphatase Troponin T Gen 5 ng/L 14 Total Protein Albumin Globulin Triglycerides Cholesterol LDL Cholesterol, Calc HDL Cholesterol LDL/HDL Ratio Cholesterol/HDL Ratio Lipase Procalcitonin TSH Urine Color Urine Appearance Urine pH Ur Specific [place] Urine Protein Urine Glucose (UA) Urine Ketones Urine Blood Urine Nitrate Urine Bilirubin Urine Urobilinogen Ur Leukocyte Esterase Gastric Occult Blood Urine Opiates Screen Ur Barbiturates Screen Ur Phencyclidine Scrn Ur Amphetamines Screen U Benzodiazepines Scrn Urine Cocaine Screen U Marijuana (THC) Screen Serum Ketones Negative 02/18/21 02/19/21 02/19/21 21:22 05:04 05:04 WBC 16.4 H RBC 4.53 Hgb 13.7 Hct 39.1 L MCV 86.3 MCH 30.2 MCHC 35.0 RDW 12.3 Plt Count 271 MPV 10.6 H Neut % (Auto) 76.8 Lymph % (Auto) 15.7 [place] % (Auto) 6.6 Eos % (Auto) 0.2 Baso % (Auto) 0.3 Neut # (Auto) 12.60 H Lymph # (Auto) 2.6 [place] # (Auto) 1.1 H Eos # (Auto) 0.0 Baso # (Auto) 0.1 Nucleated RBC % (auto) 0 Nucleated RBCs # 0.0 Specimen Type Sample Site ABG pH ABG pCO2 ABG pO2 ABG HCO3 ABG O2 Saturation ABG Base Excess Sina Test VBG pH VBG pCO2 VBG pO2 VBG HCO3 VBG Base Excess VBG Hematocrit A-a O2 Gradient Hematocrit Hgb O2 Saturation Carboxyhemoglobin Methemoglobin Total Hemoglobin Ionized Calcium O2 Delivery Device FiO2 [place] Tier ID Sodium 139 Potassium 3.6 Chloride 103 Carbon Dioxide 25 Anion Gap 14.6 BUN 11 Creatinine 0.7 GFR Calculation 132.4 H Glucose 134 H POC Glucose 165 H Estimat Average Glucose Hemoglobin A1c Calculated Osmolality 289 Lactic Acid Calcium 9.0 Phosphorus Magnesium 2.0 Total Bilirubin 1.1 AST 11 ALT 11 Alkaline Phosphatase 71 Troponin T Gen 5 ng/L Total Protein 7.3 Albumin 4.1 Globulin 3.2 Triglycerides 117 Cholesterol 130 LDL Cholesterol, Calc 69 HDL Cholesterol 38 L LDL/HDL Ratio 1.82 Cholesterol/HDL Ratio 3.42 Lipase Procalcitonin TSH 0.66 Urine Color Urine Appearance Urine pH Ur Specific [place] Urine Protein Urine Glucose (UA) Urine Ketones Urine Blood Urine Nitrate Urine Bilirubin Urine Urobilinogen Ur Leukocyte Esterase Gastric Occult Blood Urine Opiates Screen Ur Barbiturates Screen Ur Phencyclidine Scrn Ur Amphetamines Screen U Benzodiazepines Scrn Urine Cocaine Screen U Marijuana (THC) Screen Serum Ketones 02/19/21 02/19/21 02/19/21 05:04 06:15 09:29 WBC RBC Hgb Hct MCV MCH MCHC RDW Plt Count MPV Neut % (Auto) Lymph % (Auto) [place] % (Auto) Eos % (Auto) Baso % (Auto) Neut # (Auto) Lymph # (Auto) [place] # (Auto) Eos # (Auto) Baso # (Auto) Nucleated RBC % (auto) Nucleated RBCs # Specimen Type Sample Site ABG pH ABG pCO2 ABG pO2 ABG HCO3 ABG O2 Saturation ABG Base Excess Sina Test VBG pH VBG pCO2 VBG pO2 VBG HCO3 VBG Base Excess VBG Hematocrit A-a O2 Gradient Hematocrit Hgb O2 Saturation Carboxyhemoglobin Methemoglobin Total Hemoglobin Ionized Calcium O2 Delivery Device FiO2 [place] Tier ID Sodium Potassium Chloride Carbon Dioxide Anion Gap BUN Creatinine GFR Calculation Glucose POC Glucose 134 H Estimat Average Glucose 151 Hemoglobin A1c 6.9 H Calculated Osmolality Lactic Acid Calcium Phosphorus Magnesium Total Bilirubin AST ALT Alkaline Phosphatase Troponin T Gen 5 ng/L Total Protein Albumin Globulin Triglycerides Cholesterol LDL Cholesterol, Calc HDL Cholesterol LDL/HDL Ratio Cholesterol/HDL Ratio Lipase Procalcitonin TSH Urine Color Yellow Urine Appearance Clear Urine pH 7 Ur Specific [place] 1.010 Urine Protein Neg Urine Glucose (UA) 1+ H Urine Ketones 1+ H Urine Blood Neg Urine Nitrate Negative Urine Bilirubin Neg Urine Urobilinogen 4 H Ur Leukocyte Esterase Negative Gastric Occult Blood Urine Opiates Screen Ur Barbiturates Screen Ur Phencyclidine Scrn Ur Amphetamines Screen U Benzodiazepines Scrn Urine Cocaine Screen U Marijuana (THC) Screen Serum Ketones 02/19/21 09:29 WBC RBC Hgb Hct MCV MCH MCHC RDW Plt Count MPV Neut % (Auto) Lymph % (Auto) [place] % (Auto) Eos % (Auto) Baso % (Auto) Neut # (Auto) Lymph # (Auto) [place] # (Auto) Eos # (Auto) Baso # (Auto) Nucleated RBC % (auto) Nucleated RBCs # Specimen Type Sample Site ABG pH ABG pCO2 ABG pO2 ABG HCO3 ABG O2 Saturation ABG Base Excess Sina Test VBG pH VBG pCO2 VBG pO2 VBG HCO3 VBG Base Excess VBG Hematocrit A-a O2 Gradient Hematocrit Hgb O2 Saturation Carboxyhemoglobin Methemoglobin Total Hemoglobin Ionized Calcium O2 Delivery Device FiO2 [place] Tier ID Sodium Potassium Chloride Carbon Dioxide Anion Gap BUN Creatinine GFR Calculation Glucose POC Glucose Estimat Average Glucose Hemoglobin A1c Calculated Osmolality Lactic Acid Calcium Phosphorus Magnesium Total Bilirubin AST ALT Alkaline Phosphatase Troponin T Gen 5 ng/L Total Protein Albumin Globulin Triglycerides Cholesterol LDL Cholesterol, Calc HDL Cholesterol LDL/HDL Ratio Cholesterol/HDL Ratio Lipase Procalcitonin TSH Urine Color Urine Appearance Urine pH Ur Specific [place] Urine Protein Urine Glucose (UA) Urine Ketones Urine Blood Urine Nitrate Urine Bilirubin Urine Urobilinogen Ur Leukocyte Esterase Gastric Occult Blood Urine Opiates Screen Positive H Ur Barbiturates Screen Negative Ur Phencyclidine Scrn Negative Ur Amphetamines Screen Negative U Benzodiazepines Scrn Positive H Urine Cocaine Screen Negative U Marijuana (THC) Screen Positive H Serum Ketones Micro: Microbiology 02/18/21 20:35 Blood Culture - Preliminary Blood SPECIMEN COLLECTED 02/18/21 20:40 Blood Culture - Preliminary Blood SPECIMEN COLLECTED Cardiac Studies: No Data to Display
[2021-02-19] MEDS: sodium chloride 0.9% 1,000 ML 30 ML IV (10:19)
[2021-02-19 10:26] LABS: Glucose Point of Care 118 mg/dL (70-110)
--- NOTE | 2021-02-19 11:18 | P.CONIM_ITS ---
Providers/Reason For Consult Consulting Physician/Specialty*: General Surgery Yuri Bee MD Reason for Consult*: Request for EGD for coffee-ground emesis. Attending Physician: Karmen Quintana MD History of Present Illness History of Present Illness Obdulio Barkley is a 31 year old male who has been having some intermittent problems with nausea and vomiting over the past year. He recently started taking some Metformin and thinks that made it worse. He says he had some episodes of emesis yesterday that looked like coffee grounds or blood. He has not had any vomiting since yesterday. He is not in the habit of taking a lot of NSAIDs. He has never been diagnosed with peptic ulcer disease before. He has been having some epigastric discomfort but says that it just got worse after he started vomiting. He had a CAT scan of the chest/abdomen/pelvis on presentation that did not reveal any obvious abnormalities. It appears that his hemoglobin has remained stable. Review of Systems General: Reports: 10 or more systems reviewed and unremarkable except in HPI and below Const: Denies: fever(s) GI: Reports: abdominal pain, nausea, vomiting and diarrhea Meds/Allergies Home Medications and Allergies Home Medications Medication Instructions Recorded Confirmed Last Taken Type albuterol sulfate 90 mcg/actuation 2 puff INHALATION Q6H PRN #8.5 g 01/25/21 02/18/21 Unknown Rx aerosol inhaler metformin 500 mg PO DAILY@12 02/18/21 02/18/21 02/17/21 History Allergies Allergy/AdvReac Type Severity Reaction Status Date / Time Penicillins Allergy Unknown unknown Verified 02/18/21 16:03 Current Medications Current Medications Generic Name Dose Route Start Last Admin Trade Name Freq PRN Reason Stop Dose Admin Lactated Ringer's 1,000 mls @ 100 mls/hr 02/18/21 19:45 02/19/21 09:32 Lactated Ringers IV 100 mls/hr .Q10H AAMIR Administration Sodium Chloride 1,000 mls @ 30 mls/hr 02/19/21 10:15 02/19/21 10:19 Sodium Chloride 0.9% IV 02/20/21 10:14 30 mls/hr .Q24H AAMIR Administration Insulin Human Lispro 0 unit 02/19/21 08:00 02/19/21 08:25 Insulin Lispro 100 Unit/1 Ml SUBCUT Not Given TIDWM AAMIR Protocol Ondansetron HCl 4 mg 02/18/21 19:52 02/18/21 20:01 Ondansetron 2 Mg/Ml Sdv 2 Ml IVP 4 mg Q4H PRN Administration NAUSEA AND VOMITING Pantoprazole Sodium 40 mg 02/18/21 19:45 02/18/21 20:01 Pantoprazole 40 Mg Sdv IVP 40 mg Q24H AAMIR Administration PFSH Acute PFSH: Medical History Asthma Contusion of lower back Family history of diabetes mellitus Father and two siblings Vomiting and diarrhea Weight loss, unintentional Family History Other Diabetes Social History Smoking and tobacco status: never smoked Alcohol intake: current Alcohol intake frequency: holidays/special occasions only Marital status: Number of children: 2 Current occupational status: employed Vitals/I&O/Wt Last Vital Signs Temp 98.7 F 02/19/21 10:10 Pulse 90 02/19/21 10:10 Resp 18 02/19/21 10:10 BP 138/83 02/19/21 10:10 Pulse Ox 98 02/19/21 10:10 02/18/21 02/19/21 02/19/21 22:59 06:59 14:59 Intake Total 999 / 1999 999 / 1999 Output Total 0 / 0 400 / 400 Balance 999 / 1999 999 / 1999 -400 / -400 Weight last 48 hrs Weight 150 lb Weight 153 lb Physical Exam Narrative: EXAM NARRATIVE: The patient is in no distress. In fact, he was sleeping when I entered the room but he was easily arousable. The pupils are equal. The chest is clear anteriorly. The heart is regular. The abdomen is mildly obese but reveals good bowel sounds. He does have some mild epigastric tenderness on exam. No obvious masses are palpated. The extremities reveal no edema. Neurologically the patient appears to be grossly intact. Data Micro: Micro: Microbiology 02/18/21 20:35 Blood Culture - Pr eliminary Blood SPECIMEN COLLEC SIERRA 02/18/21 20:40 Blood Culture - Pr eliminary Blood SPECIMEN COLLE SIERRA Imaging^: CT Abd/Pel: Radiologist's impression: CT chest/abdomen/pelvis 02/18/2021 IMPRESSION: 1. Negative for acute inflammatory process in the abdomen or pelvis. 2. Hepatic steatosis. A&P Assessment and plan (1) Coffee ground emesis: I have discussed an EGD with the patient in some detail. All of his questions were answered. He seems to understand and is agreeable to proceeding. Status: Acute (2) Vomiting and diarrhea: Status: Acute Consult Attestations Medical Necessity Statement: See admitting service's notation. 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
--- NOTE | 2021-02-19 11:58 | ANE.PACU2 ---
Inpatient post-anesthesia follow up: Airway intact: Yes Vital signs: Temperature 97.7 F Pulse Rate [Monito r] 123 Pulse Rate 75 Respiratory Rate 20 Blood Pressure [Le ft Arm] 142/90 Blood Pressure 125/58 Pulse Oximetry 98 Oxygen Delivery Me thod Room Air Oxygen Flow Rate Fraction of Inspir ed Oxygen Hydration adequate: Yes Nausea and vomiting: No Pain level: 1 Mental status: Baseline
[2021-02-19 13:26] LABS: Glucose Point of Care 117 mg/dL (70-110)
[2021-02-19 17:00] LABS: Glucose Point of Care 106 mg/dL (70-110)
[2021-02-19] MEDS: pantoprazole 40 mg SDV IVP (18:05)
[2021-02-19] MEDS: lidocaine 2% viscous 15 ML, aluminum-mag hydrox-simethicon 30 ML, sucralfate oral liq 1 GM PO (18:38)
[2021-02-19 20:51] LABS: Glucose Point of Care 147 mg/dL (70-110)
[2021-02-19] MEDS: insulin lispro 100 unit/1 mL SUBCUT (21:19)
[2021-02-20] VITALS: BP 122/81; PULSE 93; RESP 16; TEMP 36.4; O2SAT 94
[2021-02-20 04:00] VITALS: BP 155/88; PULSE 68; RESP 18; TEMP 36.8; O2SAT 97
[2021-02-20] MEDS: ondansetron 2 mg/ML SDV 2 mL 4 MG IVP (05:13)
[2021-02-20 05:14] LABS: Basophils # 0.1 10^3/uL (0.0-0.1); Basophils % 0.5 %; Eosinophils # 0.1 10^3/uL (0.0-0.8); Eosinophils % 0.8 %; Hematocrit 40.1 % (42.0-52.0); Hemoglobin 13.6 g/dL (11.7-16.6); Lymphocytes # 3.5 10^3/uL (0.8-4.8); Lymphocytes % 31.8 %; Mean Corpuscular HGB Conc 33.9 g/dL (30.0-36.0); Mean Corpuscular Hemoglobin 29.2 pg (28.0-34.0); Mean Corpuscular Volume 86.2 fl (80-94); Mean Platelet Volume 10.5 fL (7.4-10.4); Monocytes # 0.7 10^3/uL (0.2-0.9); Neutrophils # 6.64 10^3/uL (1.8-7.7); Neutrophils % 60.5 %; Nucleated Red Blood Cells % 0 %; Platelet Count 234 10^3/cmm (130-400); Red Blood Count 4.65 10^6/uL (4.1-5.3); Red Cell Distribution Width 11.9 % (12.1-15.1)
[2021-02-20 05:32] LABS: Anion Gap 16.6 (5-19); Blood Urea Nitrogen 8 mg/dL (6-20); Calcium 8.5 mg/dL (8.5-10.5); Carbon Dioxide 24 mmol/L (22-29); Chloride 101 mmol/L (98-107); Glomerular Filtration Rate 195.2 mL/min (90-130); Glucose 125 mg/dL (65-115); Osmolality Calculated 286 mOsm/kg (285-295); Potassium 3.6 mmol/L (3.5-5.1); Sodium 138 mmol/L (136-145)
[2021-02-20 06:29] LABS: Glucose Point of Care 128 mg/dL (70-110)
[2021-02-20 07:22] VITALS: BP 119/79; PULSE 76; RESP 16; TEMP 37.1; O2SAT 95
[2021-02-20 08:00] VITALS: BP 119/79; PULSE 76; RESP 16; TEMP 37.1; O2SAT 95
[2021-02-20] MEDS: pantoprazole 40 mg SDV IVP (08:13)
[2021-02-20] MEDS: lactated ringers 1,000 ML 100 ML IV (10:02)
[2021-02-20 12:00] VITALS: BP 160/83; PULSE 73; RESP 17; TEMP 36.8; O2SAT 97
[2021-02-20 12:17] LABS: Glucose Point of Care 115 mg/dL (70-110)
--- NOTE | 2021-02-20 13:25 | ECG_ITS ---
[facility] Test Date: 2021-02-20 Pat Name: Obdulio Barkley Department: Room: 254 Gender: Male Top Trimmer: : 1990 Requested By: Karmen Quintana Order Number: [id number] Dawn MD: Geri Arauz M.D. Measurements Intervals [place] Rate: 80 P: 21 TX: 159 QRS: 20 QRSD: 91 T: 31 QT: 348 QTc: 402 Interpretive Statements SINUS RHYTHM Compared to ECG 02/18/2021 23:44:25 No significant changes Electronically Signed On 02-21-2021 1:24:43 CDT by Geri Arauz M.D. [id number]
[2021-02-20] MEDS: lidocaine 2% viscous 15 ML, aluminum-mag hydrox-simethicon 30 ML, sucralfate oral liq 1 GM PO (13:58)
[2021-02-20 14:13] LABS: Troponin T (5th) Once 9 ng/L (0-15)
[2021-02-20 14:43] LABS: H. Pylori / CLO Test Negative
--- NOTE | 2021-02-20 16:02 | P.DS_ITS ---
Discharge Providers Date of Admission: 02/18/21 17:40 Date of Discharge: February 20, 2021 Attending Provider at Admission: Karmen Quintana MD Attending Provider at Discharge: Karmen Quintana MD Diagnoses at Discharge Discharge Diagnosis (1) Vomiting: Status: Resolved (2) Coffee ground emesis: Status: Resolved (3) Weight loss, unintentional: Status: Acute (4) Asthma: Status: Acute (5) Occult blood positive stool: Status: Resolved Reason for Visit Reason for Visit: Vomiting Hospital Course Hospital Course Obdulio Barkley is a 31 year old male with history of asthma on albuterol inhaler as needed and recently diagnosed with diabetes 1 week ago for next of the ER with nausea vomiting that he says started about a week ago. He said 1 week ago it got worse where he has been vomiting every day but overall it has been going on for almost a year now. He has also lost a lot of weight and unable to keep any water or food down. He says 1 week ago he started to worsen and today was the worst day and therefore he came to the ER. He has never had an endoscopy or colonoscopy before. He denies having any of these problems in his family members. He does state that his brother and father have diabetes. He says he started taking metformin today and feels that may have exacerbated the nausea vomiting. Patient is a former smoker he quit 2 months ago is a former alcohol drinker quit 2 months ago and does smoke weed from time to time but has recently has not had any. Denies having any blood in the stool he did have an episode of emesis with coffee-ground material in the ER today. FOBT done by ER was positive. Denies chest pain, shortness of breath. Does endorse some epigastric pain but attributes it to the continuous retching that he is having. Has not had any fevers at home or recent illnesses. Hemoglobin A1c checked recently 7.0. He did have a little bit of diarrhea which has resolved by now. When seen in the room by medicine hospitalist patient was actively shaking. ED course: On arrival to ER blood pressure 142/90, saturating 100% on room air, tachycardic 123, temperature 99.5. Serum ketones negative, anion gap 23.1, WBC 19.5, potassium 3.1. He was given morphine 4 mg, 80 mg IV Protonix, Phenergan 25 mg once. Due to FOBT being positive Dr. Bee was called for potential endoscopy in the morning. Patient has been kept n.p.o. Urine culture was also ordered including urinalysis but patient refused to give a urine sample as per nursing staff. Course Patient was seen by GI for EGD. EGD was performed which showed chronic gastritis. H.Pylori testing was done via [place] test and it was negative. However patient was on PPI prior to testing. He also complained of heart burn which was resolved by GI cocktail. He was dc home on PPI BID, sucralfate QID. Patient was asked to follow with endocrinology and PCP. His metformin was stopped. Patient was able to tolerate a diet at discharge. Physical Exam Narrative: EXAM NARRATIVE: General: Alert oriented x3, laying in bed appearing better than yesterday and comfortable. HEENT: Normocephalic, atraumatic, EOMI, breathing room air Cardio: Regular rate rhythm, normal S1-S2, no murmurs rubs gallops, Respiratory: Good bilateral air entry, no wheezes no rhonchi appreciated GI: Abdomen soft, mildly tender to deep palpation in epigastric region, nondistended, bowel sounds normoactive. exam improved from admission Behavior: Appropriate and cooperative, appears a little worried Extremities: Pulses 2+, no edema, no cyanosis Discharge Data Data Completed and Pending: Completed Studies During Hospitalization Category Date Time Status CT chest abd pel w con* Stat Cat Scan 02/18/21 19:43 Completed Pending at discharge Category Date Time Status Beta-Hydroxybutyr ate Stat Lab 02/18/21 20:40 Received Blood Culture Rou marybel Lab 02/18/21 20:35 Results Labs from last 24 hours 02/20/21 02/20/21 02/20/21 13:48 12:07 06:21 WBC RBC Hgb Hct MCV MCH MCHC RDW Plt Count MPV Neut % (Auto) Lymph % (Auto) [place] % (Auto) Eos % (Auto) Baso % (Auto) Neut # (Auto) Lymph # (Auto) [place] # (Auto) Eos # (Auto) Baso # (Auto) Nucleated RBC % (a uto) Nucleated RBCs # Sodium Potassium Chloride Carbon Dioxide Anion Gap BUN Creatinine GFR Calculation Glucose POC Glucose 115 H 128 H Calculated Osmolal ity Calcium Troponin T Gen 5 n g/L 9 H. pylori IgG Anti body 02/20/21 02/20/21 02/19/21 04:41 04:41 20:47 WBC 11.0 H RBC 4.65 Hgb 13.6 Hct 40.1 L MCV 86.2 MCH 29.2 MCHC 33.9 RDW 11.9 L Plt Count 234 MPV 10.5 H Neut % (Auto) 60.5 Lymph % (Auto) 31.8 [place] % (Auto) 6.0 Eos % (Auto) 0.8 Baso % (Auto) 0.5 Neut # (Auto) 6.64 Lymph # (Auto) 3.5 [place] # (Auto) 0.7 Eos # (Auto) 0.1 Baso # (Auto) 0.1 Nucleated RBC % (a uto) 0 Nucleated RBCs # 0.0 Sodium 138 Potassium 3.6 Chloride 101 Carbon Dioxide 24 Anion Gap 16.6 BUN 8 Creatinine 0.5 L GFR Calculation 195.2 H Glucose 125 H POC Glucose 147 H Calculated Osmolal ity 286 Calcium 8.5 Troponin T Gen 5 n g/L H. pylori IgG Anti body 02/19/21 02/19/21 16:51 11:37 WBC RBC Hgb Hct MCV MCH MCHC RDW Plt Count MPV Neut % (Auto) Lymph % (Auto) [place] % (Auto) Eos % (Auto) Baso % (Auto) Neut # (Auto) Lymph # (Auto) [place] # (Auto) Eos # (Auto) Baso # (Auto) Nucleated RBC % (a uto) Nucleated RBCs # Sodium Potassium Chloride Carbon Dioxide Anion Gap BUN Creatinine GFR Calculation Glucose POC Glucose 106 Calculated Osmolal ity Calcium Troponin T Gen 5 n g/L H. pylori IgG Anti body Negative Vitals: Last Vital Signs Temp 98.2 F 02/20/21 12:00 Pulse 73 02/20/21 12:00 Resp 17 02/20/21 12:00 BP 160/83 02/20/21 12:00 Pulse Ox 97 02/20/21 12:00 Discharge Plan Discharge Patient Disposition: Home Condition: Stable Prescriptions: New sucralfate 1 gram Tablet 1 g PO QID 14 Days Qty: 56 RF: 0 Protonix 40 mg tablet,delayed release (DR/EC) 40 mg PO BID 30 Days Qty: 60 RF: 0 Continued albuterol sulfate [Ventolin HFA] 90 mcg/actuation HFA aerosol inhaler 2 puff inhalation Q6H PRN (Reason: shortness of breath or wheezing) Qty: 8.5 RF: 0 Held metformin 500 mg tablet extended release 24 hr 500 mg PO DAILY@12 RF: 0 Hold Instructions: see endocrine specialist before resuming Discharge Orders: Discharge Order (Routine); Ordered 02/20/21 Ordered By: Karmen Quintana Referrals: Jethro Burks DO [Physician] - 02/27/21 9:15 am Domitila Uriarte MD [Physician] - 02/28/21 10:45 am (c ) Discharge Diet: Diabetic and GI Soft Discharge Activity: Resume usual activity Patient Instructions: Sucralfate (By mouth), Pantoprazole (By mouth), GI Discharge Instructions, Opioid Safety Activity Restrictions/Additional Instructions: Can take maalox over the counter as needed. See package directions. Discharge Attestations Time Spent in Discharge Care*: less than 30 min Quality Metrics Clinical Quality Measures During this hospital stay, did patient experience: None Coding Level of Care Code Acute [facility] note Diagnoses Vomiting R11.10 Coffee ground emesis K92.0 Weight loss, unintentional R63.4 Asthma J45.909 Occult blood positive stool R19.5
[2021-02-20] MEDS: sucralfate 1 gm Tablet PO (16:25)
[2021-02-20 16:54] VITALS: BP 160/83; PULSE 73; RESP 17; TEMP 36.8; O2SAT 97
[2021-02-23 21:47] LABS: Beta-Hydroxybutyrate 0.47 mmol/L
== END 2021-02-20 16:56 | disposition home or self-care (01) ==
LOC: ER 17:33 → MEDSURG 02-19 08:34
PROVIDERS: Physician Assistant; Surgery; Admitting Provider Internal Medicine; Emergency Provider Family Medicine; Visit Provider Internal Medicine
PROC: 0DJ08ZZ Inspection of Upper Intestinal Tract, Via Natural or Artificial Opening Endoscopic (ICD-10-PCS; CPT 43235; principal; 2021-02-19 11:30)
DX: K29.50 Unspecified chronic gastritis without bleeding (principal); R11.10 Vomiting, unspecified; R19.5 Other fecal abnormalities; J45.909 Unspecified asthma, uncomplicated; R63.4 Abnormal weight loss; K92.0 Hematemesis; E11.9 Type 2 diabetes mellitus without complications; Z79.84 Long term (current) use of oral hypoglycemic drugs; Z87.891 Personal history of nicotine dependence
CPT/HCPCS: 36415; 36416; 36600; 43239; 71260; 74177; 80048; 80051; 80053; 80061; 80306; 81003; 82009; 82010; 82271; 82330; 82803; 82805; 82962; 83036; 83605; 83690; 83735; 84100; 84145; 84443; 84484; 85025; 87040; 87077; 93005; 96361; 96372; 96374; 96375; 96376; 99285; C9113; G0378; J1815; J2060; J2270; J2405; J2550; J2704; J7030; Q9967

== ENCOUNTER → 2021-02-27 10:25 | Outpatient (BNVA) | payer MEDICAID, SELFPAY | PROVIDERS: Visit Provider Family Medicine | DX: E11.65 Type 2 diabetes mellitus with hyperglycemia (principal) | CPT/HCPCS: 83519; 83525; 84681 ==

== ENCOUNTER → 2021-02-28 10:23 | Outpatient (BNVA) | payer MEDICAID, SELFPAY | PROVIDERS: Referring Provider Internal Medicine; Visit Provider Internal Medicine | DX: E11.65 Type 2 diabetes mellitus with hyperglycemia (principal); Z78.9 Other specified health status; Z87.891 Personal history of nicotine dependence | CPT/HCPCS: 99204 ==

== ENCOUNTER 2021-08-09 08:42 | Emergency (ER) | payer BC, MEDICAID, SELFPAY ==
[2021-08-09 08:49] VITALS: BP 158/82; PULSE 113; RESP 16; TEMP 36.3; O2SAT 100; BMI 26.5
--- NOTE | 2021-08-09 09:18 | ED_ITS ---
HPI - Nausea/Vomiting/Diarrhea General: Chief complaint: Nausea/Vomiting/Diarrhea Stated complaint: Nausia and vomiting Time Seen by Provider: 08/09/21 08:56 History of Present Illness: Pt comes in with nausea vomiting and diarrhea for the past 2 days. He also complains of some upper epigastric abdominal/lower chest pain which he describes as cramping in nature. States it has been constant since he started vomiting. Denies fever. States he was recently diagnosed with diabetes and is on been unable to take his medications due to the vomiting. Associated nausea: Yes Associated symtoms: Reports nausea; Denies anxiety, change in vision, chest pain, dysuria, headache(s) or palpitations Review of Systems Const: Denies: fever(s) or body aches Eyes: Denies: change in vision or blurry vision ENMT: Denies: throat pain or odynophagia Card: Denies: chest pain or palpitations Resp: Denies: dyspnea or productive cough GI: Reports: abdominal pain, nausea and vomiting : Denies: flank pain or dysuria Musc: Denies: neck pain or back pain Skin/Breast: Denies: rash or pruritus Neuro: Denies: headache(s) or numbness in extremities Psych: Denies: anxiety or change in appetite Endo: Denies: polyuria or excessive sweating PFSH ED PFSH: Medical History Asthma Contusion of lower back Family history of diabetes mellitus Father and two siblings Vomiting and diarrhea Weight loss, unintentional Surgical History No pertinent past surgical history Family History Father Diabetes Chronic kidney disease (CKD) Amputated below knee Mother Heart problem Social History Smoking and tobacco status: never smoked Quit status (tobacco): has tried quititng Second hand smoke exposure: Yes Smoking risk assessment/counseling performed?: Yes Alcohol intake: current Alcohol intake frequency: holidays/special occasions only Desire information about alcohol rehabilitation?: No Counseling given: No Desire information about substance/drug rehabilitation?: No Counseling given: Yes Adopted: No Caregiver/support person: No Lives independently: Yes Household members: spouse and children Housing: House Marital status: Number of children: 2 Highest education level completed: High School Graduate service: No Current occupational status: employed Sexually active: Yes Current gender identity: Male Agree to transfusion: Yes Physical Exam Const: COMMON NORMALS: no acute distress, patient oriented x3, healthy appearing and alert HENMT: COMMON NORMALS: normocephalic and atraumatic HEAD & SCALP: normocephalic and atraumatic OTHER: Fruity ketotic odor to the breath Eye: COMMON NORMALS: Equal, round and reactive pupils present and EOMs intact bilaterally PUPIL: Yes Equal, round and reactive pupils present Neck/C-Spine: COMMON NORMALS: full ROM and supple Resp: COMMON NORMALS: normal respiratory effort, No retractions and No use of accessory muscles Cardio: COMMON NORMALS: regular rhythm RHYTHM: regular rhythm OTHER: Tachycardia GI: COMMON NORMALS: Normal to inspection, nondistended, normoactive bowel sounds present, Soft to palpation and non-tender PALPATION: Yes Soft to palpation Back/Pelvis: COMMON NORMALS: thoracic and lumbar spine normal to inspection and no thoracic nor lumbar tenderness Extremity: COMMON NORMALS: normal to inspection and full ROM Neuro: COMMON NORMALS: patient oriented x3 SENSORIUM/ORIENTATION: Yes alert Psych: COMMON NORMALS: mental status grossly normal and cooperative Skin: COMMON NORMALS: no rashes or lesions noted and no wounds GENERAL SKIN EXAM: no rashes or lesions noted Course Vital Signs: Vital signs: Vital Signs Temperature 97.3 F L 08/09/21 08:49 Pulse Rate 68 08/09/21 12:55 Respiratory Rate 16 08/09/21 15:46 Blood Pressure 202/94 08/09/21 12:55 Pulse Oximetry 100 08/09/21 15:46 MDM - Nausea/Vomiting/Diarrhea Medical Decision Making Pt comes in with nausea vomiting and diarrhea for the past 2 days. He also complains of some upper epigastric abdominal/lower chest pain which he describes as cramping in nature. States it has been constant since he started vomiting. Denies fever. States he was recently diagnosed with diabetes and is on been unable to take his medications due to the vomiting. On physical exam he is tachycardic, abdomen is soft nontender. He has a ketotic odor to the breath. Will check labs, give IV fluids, treat nausea with IV Compazine, and reassess. On reassessment I talked to the patient about the test results. We will continue IV antiemetics, start insulin drip, and reassess. I discussed the patient with our hospitalist and we will need to transfer the patient to a center with a higher level of care. I discussed the case with Sheree Be and a do not have the ability to take care of this there. I discussed the case with the CT surgeon at [facility], and they have accepted the patient in transfer. Lab Data : 08/09/21 08:57 08/09/21 08:57 Radiology Impressions Abdomen/Pelvis CT 08/09/21 10:46 IMPRESSION: 1. There is air within the posterior mediastinum as well as within the anterior mediastinum and the pericardial sac. There is no evidence of fluid however, given the history esophageal tear needs to be considered. There is no intraperitoneal free air or free fluid 2. THIS REPORT CONTAINS FINDINGS THAT MAY BE CRITICAL TO PATIENT CARE. The findings were verbally communicated by me to Dr Delaney at 11:51 AM PASSENGER SERVICE MANAGER on 08/09/2021. The findings were acknowledged and understood. Laboratory Results WBC 19.6 10^3/uL (4.0-10.0) H 08/09/21 08:57 RBC 5.68 10^6/uL (4.1-5.3) H 08/09/21 08:57 Hgb 16.7 g/dL (11.7-16.6) H 08/09/21 08:57 Hct 50.1 % (42.0-52.0) 08/09/21 08:57 MCV 88.2 fl (80-94) 08/09/21 08:57 MCH 29.4 pg (28.0-34.0) 08/09/21 08:57 MCHC 33.3 g/dL (30.0-36.0) 08/09/21 08:57 RDW 12.1 % (12.1-15.1) 08/09/21 08:57 Plt Count 310 10^3/cmm (130-400) 08/09/21 08:57 MPV 11.0 fL (7.4-10.4) H 08/09/21 08:57 Neut % (Auto) 88.0 % 08/09/21 08:57 Lymph % (Auto) 7.2 % 08/09/21 08:57 [place] % (Auto) 4.1 % 08/09/21 08:57 Eos % (Auto) 0.0 % 08/09/21 08:57 Baso % (Auto) 0.2 % 08/09/21 08:57 Neut # (Auto) 17.27 10^3/uL (1.8-7.7) H 08/09/21 08:57 Lymph # (Auto) 1.4 10^3/uL (0.8-4.8) 08/09/21 08:57 [place] # (Auto) 0.8 10^3/uL (0.2-0.9) 08/09/21 08:57 Eos # (Auto) 0.0 10^3/uL (0.0-0.8) 08/09/21 08:57 Baso # (Auto) 0.0 10^3/uL (0.0-0.1) 08/09/21 08:57 Nucleated RBC % (auto) 0 % 08/09/21 08:57 Nucleated RBCs # 0.0 /100WBC 08/09/21 08:57 Specimen Type Arterial 08/09/21 09:25 Sample Site Brachial, left 08/09/21 09:25 ABG pH 7.41 (7.35-7.45) 08/09/21 09:25 ABG pCO2 33.5 mmHg (35-45) L 08/09/21 09:25 ABG pO2 87.9 mmHg (80.0-100.0) 08/09/21 09:25 ABG HCO3 21.1 mmol/L (22-26) L 08/09/21 09:25 ABG Base Excess -2.7 mmol/L (-2.0-2.0) L 08/09/21 09:25 Sina Test N/a 08/09/21 09:25 Hematocrit 48.8 % (42-52) 08/09/21 09:25 O2 Delivery Device Room air 08/09/21 09:25 FiO2 21.0 % 08/09/21 09:25 Petroleum Laboratory Technician ID [facility] 08/09/21 09:25 Sodium 136 mmol/L (136-145) 08/09/21 08:57 Potassium 4.1 mmol/L (3.5-5.1) 08/09/21 08:57 Chloride 95 mmol/L (98-107) L 08/09/21 08:57 Carbon Dioxide 17 mmol/L (22-29) L 08/09/21 08:57 Anion Gap 28.1 (5-19) H 08/09/21 08:57 BUN 17 mg/dL (6-20) 08/09/21 08:57 Creatinine 0.7 mg/dL (0.7-1.2) 08/09/21 08:57 GFR Calculation 132.4 mL/min (90-130) H 08/09/21 08:57 Glucose 220 mg/dL (65-115) H 08/09/21 08:57 POC Glucose 129 mg/dL (70-110) H 08/09/21 17:02 Calculated Osmolality 290 mOsm/kg (285-295) 08/09/21 08:57 Calcium 9.8 mg/dL (8.5-10.5) 08/09/21 08:57 Total Bilirubin 1.0 mg/dL (0.15-1.2) 08/09/21 08:57 AST 21 U/L (0-40) 08/09/21 08:57 ALT 21 U/L (0-41) 08/09/21 08:57 Alkaline Phosphatase 89 IU/L (40-130) 08/09/21 08:57 Total Protein 9.2 g/dL (6.6-8.7) H 08/09/21 08:57 Albumin 0.2 g/dL (3.5-5.2) L 08/09/21 08:57 Globulin 9.0 g/dL (1.3-4.6) H 08/09/21 08:57 Lipase 16 U/L (13-60) 08/09/21 08:57 Urine Color Yellow (Yellow) 08/09/21 12:20 Urine Appearance Clear (CLEAR) 08/09/21 12:20 Urine pH 6.5 (5-7) 08/09/21 12:20 Ur Specific [place] 1.005 (1.005-1.030) 08/09/21 12:20 Urine Protein 1+ (Negative) H 08/09/21 12:20 Urine Glucose (UA) 2+ (Normal) H 08/09/21 12:20 Urine Ketones 2+ (Negative) H 08/09/21 12:20 Urine Blood Neg (Negative) 08/09/21 12:20 Urine Nitrate Negative (Negative) 08/09/21 12:20 Urine Bilirubin Neg (Negative) 08/09/21 12:20 Urine Urobilinogen 1 mg/dL (Negative) H 08/09/21 12:20 Ur Leukocyte Esterase Negative (Negative) 08/09/21 12:20 Urine RBC 0-4 /hpf (0-2) H 08/09/21 12:20 Urine WBC 0-4 /hpf (0-5) H 08/09/21 12:20 Ur Squamous Epith Cells 0-4 /hpf (0-5) H 08/09/21 12:20 Amorphous Sediment Not Reportable 08/09/21 12:20 Urine Bacteria Trace /hpf (NONE) 08/09/21 12:20 Urine Mucus 1+ /hpf 08/09/21 12:20 Critical Care Time Critical Care Time: Critical Care Time: Yes Total Critical Care Time: 35 Attestation: This case had a high probability of a clinically significant, sudden, or life threatening deterioration of this patient's condition which required my full and direct attention, intervention and personal management. Discharge Plan Discharge Patient Disposition: Xfer Short-Term Hosp Clinical Impression: Acute hyperglycemia, Mediastinal air Condition: Stable Discharge Orders: Transfer Out of Facility (Order); Ordered 08/09/21 Ordered By: Cecilio Munoz Coding Level of Care Code ED Manager Domestic for Chg Fwd Exam Comprehensive
[2021-08-09 09:26] LABS: Basophils % 0.2 %; Hematocrit 50.1 % (42.0-52.0); Hemoglobin 16.7 g/dL (11.7-16.6); Lymphocytes # 1.4 10^3/uL (0.8-4.8); Lymphocytes % 7.2 %; Mean Corpuscular HGB Conc 33.3 g/dL (30.0-36.0); Mean Corpuscular Hemoglobin 29.4 pg (28.0-34.0); Mean Corpuscular Volume 88.2 fl (80-94); Monocytes # 0.8 10^3/uL (0.2-0.9); Monocytes % 4.1 %; Neutrophils # 17.27 10^3/uL (1.8-7.7); Nucleated Red Blood Cells % 0 %; Platelet Count 310 10^3/cmm (130-400); Red Blood Count 5.68 10^6/uL (4.1-5.3); Red Cell Distribution Width 12.1 % (12.1-15.1); White Blood Count 19.6 10^3/uL (4.0-10.0)
--- NOTE | 2021-08-09 09:35 | ECG_ITS ---
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 Measurements Intervals [place] Rate: 113 P: 61 NH: 140 QRS: 57 QRSD: 90 T: 61 QT: 309 QTc: 424 Interpretive Statements SINUS TACHYCARDIA NONSPECIFIC ST & T-WAVE ABNORMALITY ABNORMAL RHYTHM ECG Compared to ECG 02/20/2021 13:39:30 T-wave abnormality now present Sinus rhythm no longer present Electronically Signed On 08-09-2021 18:24:08 CDT by Geri Arauz M.D. [email or web address] Martin/[id number] f
[2021-08-09] MEDS: prochlorperazine 10 mg/2 mL Inj IV (09:39)
[2021-08-09] MEDS: sodium chloride 0.9% 1,000 ML 999 ML IV ×2 (09:40→11:06)
[2021-08-09 09:48] LABS: ABG PCO2 33.5 mmHg (35-45); ABG PH Result 7.41 (7.35-7.45); Arterial Blood Gas Hematocrit 48.8 % (42-52); Base Excess ABG -2.7 mmol/L (-2.0-2.0); Blood Gas Operator Identificat AMH; Blood Gas Sample Site Brachial, left; Blood Gas Sample Type Arterial; HCO3 ABG 21.1 mmol/L (22-26); Oxygen Device ROOM AIR; PO2 ABG 87.9 mmHg (80.0-100.0)
[2021-08-09 09:49] LABS: Albumin Level 0.2 g/dL (3.5-5.2); Blood Urea Nitrogen 17 mg/dL (6-20); Calcium 9.8 mg/dL (8.5-10.5); Carbon Dioxide 17 mmol/L (22-29); Glomerular Filtration Rate 132.4 mL/min (90-130); Glucose 220 mg/dL (65-115); Lipase 16 U/L (13-60); Total Protein 9.2 g/dL (6.6-8.7)
[2021-08-09 10:02] LABS: Alanine Aminotransferase 21 U/L (0-41); Alkaline Phosphatase 89 IU/L (40-130); Chloride 95 mmol/L (98-107); Osmolality Calculated 290 mOsm/kg (285-295); Sodium 136 mmol/L (136-145)
[2021-08-09 10:03] LABS: Anion Gap 28.1 (5-19); Aspartate Amino Transferase 21 U/L (0-40); Potassium 4.1 mmol/L (3.5-5.1)
--- NOTE | 2021-08-09 10:46 | CTR_ITS ---
PROCEDURE INFORMATION: Exam: CT Abdomen And Pelvis With Contrast Exam date and time: 08/09/2021 10:59 AM Age: 31 years old Clinical indication: Nausea and vomiting; Abdominal pain; Generalized TECHNIQUE: Imaging protocol: Computed tomography of the abdomen and pelvis with contrast. Radiation optimization: All CT scans at this facility use at least one of these dose optimization techniques: automated exposure control; mA and/or kV adjustment per patient size (includes targeted exams where dose is matched to clinical indication); or iterative reconstruction. Contrast material: OMNIPAQUE 300; Contrast volume: 95 ml; Contrast route: INTRAVENOUS (IV); COMPARISON: CT chest abd pel w con* 02/18/2021 9:44 PM RADIATION DOSE METRICS: Total DLP (mGy-cm): 1510.53 FINDINGS: Heart: There is pneumopericardium. Mediastinal space: There is a pneumo the feels good the who is may be a really good case mediastinum. In the absence of trauma, with this history, the presence of a [place] esophagus needs to be considered. Liver: The liver is again fatty. It is not enlarged. Gallbladder and bile ducts: Normal. No calcified stones. No ductal dilation. Pancreas: Normal. No ductal dilation. Spleen: Normal. No splenomegaly. Adrenal glands: Normal. No mass. Kidneys and ureters: Normal. No hydronephrosis. Stomach and bowel: See Appendix finding. Appendix: The appendix is a normal structure noted in the right lower quadrant. Scattered colonic diverticula without evidence of acute diverticulitis. Intraperitoneal space: Unremarkable. No free air. No significant fluid collection. Arteries: Unremarkable. No abdominal aortic aneurysm. Lymph nodes: Unremarkable. No enlarged lymph nodes. Urinary bladder: Unremarkable as visualized. Reproductive: Unremarkable as visualized. Bones/joints: Unremarkable. No acute fracture. Soft tissues: Unremarkable. CT/CT abdomen pelvis w con* [id number] IMPRESSION: 1. There is air within the posterior mediastinum as well as within the anterior mediastinum and the pericardial sac. There is no evidence of fluid however, given the history esophageal tear needs to be considered. There is no intraperitoneal free air or free fluid 2. THIS REPORT CONTAINS FINDINGS THAT MAY BE CRITICAL TO PATIENT CARE. The findings were verbally communicated by me to Dr Delaney at 11:51 AM AUTOMOBILE DESIGNER on 08/09/2021. The findings were acknowledged and understood.
[2021-08-09] MEDS: iohexol 300 mg/mL 100 mL Btl IV (11:00)
[2021-08-09] MEDS: insulin regular-human 250 UNIT in sodium chloride 0.9% 250 ML IV (11:15)
[2021-08-09 11:25] VITALS: BP 246/112; PULSE 64; RESP 23; O2SAT 100
[2021-08-09 12:00] VITALS: BP 236/117; PULSE 63; RESP 14; O2SAT 99
[2021-08-09 12:24] LABS: Glucose Point of Care 182 mg/dL (70-110)
[2021-08-09 12:24] LABS: Glucose Point of Care 131 mg/dL (70-110)
[2021-08-09] MEDS: ondansetron 2 mg/ML SDV 2 mL 4 MG IVP ×2 (12:27→15:46)
[2021-08-09] MEDS: sodium chloride 0.9% 1,000 ML 150 ML IV (12:42)
[2021-08-09 12:55] VITALS: BP 202/94; PULSE 68; RESP 17; O2SAT 100
[2021-08-09] MEDS: dextrose 5%-sod chloride 0.45% 1,000 ML 150 ML IV (12:59)
[2021-08-09 13:31] LABS: Glucose Point of Care 122 mg/dL (70-110)
[2021-08-09 13:43] LABS: Add Urine Microscopic? YES; Bilirubin Urine Neg (Negative); Blood Urine Neg (Negative); Glucose Urine UA 2+ (Normal); Ketones Urine 2+ (Negative); Leukocyte Esterase Urine Negative (Negative); Nitrate Urine Negative (Negative); Protein Urine 1+ (Negative); RBC Urine 0-4 /hpf (0-2); Specific Gravity, Urine 1.005 (1.005-1.030); Squamous Epithelial Cell Urine 0-4 /hpf (0-5); Urine Appearance Clear (CLEAR); Urine Color Yellow (Yellow); Urobilinogen Urine 1 mg/dL (Negative); WBC Urine 0-4 /hpf (0-5); pH Urine 6.5 (5-7)
[2021-08-09 13:44] LABS: Add Urine Culture? No; Bacteria Urine TRACE /hpf; Mucus Urine 1+ /hpf
[2021-08-09 15:46] VITALS: RESP 16; O2SAT 100
[2021-08-09] MEDS: morphine 4 mg/mL SDV 1 mL IVP (15:46)
[2021-08-09 17:06] LABS: Glucose Point of Care 129 mg/dL (70-110)
[2021-08-09] MEDS: clindamycin 300 MG/50 ML PREMIX 100 MG IV (18:18)
[2021-08-09 18:55] LABS: Glucose Point of Care 91 mg/dL (70-110)
--- NOTE | 2021-08-09 19:04 | PC.NURSE ---
1400-Patient accepted in transfer to [facility]. Awaiting EMS for transfer. FSBS hourly with insulin drip in progress. Report called to MEGAN Mcknight at [facility] surgical ICU. 1600-VS stable. Patient did drink between 6-8 ounces of water, he was told to be NPO but states he was so thirsty. All access to water removed from room. Small amount of emesis without gross blood, as initial. Patient educated to reasons for NPO status and now verbalized he knows the importance and risks. He is now having abd pain recurrence after vomiting and orders received for Zofran and Morphine. 1800 continue to await transport. Insulin drip adjusted per protocol. Clindamycin order noted and meds given. 1845 EMS here for transport. Last FSBS 91 and insulin adjusted per protocol. EMS updated on plan of care and provided insulin drip protocol for transport. 1900 Patient left ED stable, no distress. Updated called to [facility] Surgical ICU-spoke with MEGAN Mcknight
[2021-08-10 07:58] LABS: Glucose Point of Care 135 mg/dL (70-110)
[2021-08-10 07:58] LABS: Glucose Point of Care 178 mg/dL (70-110)
== END 2021-08-09 19:10 | disposition short-term general hospital (02) ==
PROVIDERS: Emergency Provider Emergency Medicine
DX: E11.65 Type 2 diabetes mellitus with hyperglycemia (principal); T79.7XXA Traumatic subcutaneous emphysema, initial encounter; X58.XXXA Exposure to other specified factors, initial encounter
CPT/HCPCS: 36416; 36600; 74177; 80053; 81001; 82803; 82962; 83690; 85025; 93005; 96365; 96367; 96375; 96376; 99285; J0780; J1815; J2270; J2405; J3490; J7030; J7050; J7799; Q9967

== ENCOUNTER 2021-09-09 14:07 | Emergency (ER) | payer BC, MEDICAID, SELFPAY ==
[2021-09-09 14:25] VITALS: BP 169/107; PULSE 89; RESP 18; TEMP 37.7; O2SAT 100; BMI 28.3
[2021-09-09 15:11] LABS: Add Urine Microscopic? YES; Bilirubin Urine 1+ (Negative); Blood Urine Neg (Negative); Glucose Urine UA Norm (Normal); Ketones Urine 2+ (Negative); Leukocyte Esterase Urine Negative (Negative); Nitrate Urine Negative (Negative); Protein Urine Trace (Negative); Urine Appearance Clear (CLEAR); Urine Color Dark Yellow (Yellow); Urobilinogen Urine 1 mg/dL (Negative); pH Urine 5 (5-7)
[2021-09-09 15:22] LABS: Add Urine Culture? No; Bacteria Urine TRACE /hpf; Mucus Urine 3+ /hpf; Transitional Epi Cells Urine 0-4 /hpf
[2021-09-09 16:12] LABS: Basophils # 0.1 10^3/uL (0.0-0.1); Basophils % 0.4 %; Eosinophils % 0.3 %; Hematocrit 44.1 % (42.0-52.0); Hemoglobin 15.1 g/dL (11.7-16.6); Lymphocytes # 2.2 10^3/uL (0.8-4.8); Lymphocytes % 18.9 %; Mean Corpuscular HGB Conc 34.2 g/dL (30.0-36.0); Mean Corpuscular Hemoglobin 29.5 pg (28.0-34.0); Mean Corpuscular Volume 86.1 fl (80-94); Mean Platelet Volume 10.6 fL (7.4-10.4); Monocytes # 0.7 10^3/uL (0.2-0.9); Neutrophils % 74.1 %; Nucleated Red Blood Cells % 0 %; Platelet Count 283 10^3/cmm (130-400); Red Blood Count 5.12 10^6/uL (4.1-5.3); Red Cell Distribution Width 12.3 % (12.1-15.1); White Blood Count 11.6 10^3/uL (4.0-10.0)
[2021-09-09 16:41] LABS: Alanine Aminotransferase 26 U/L (0-41); Albumin Level 5.1 g/dL (3.5-5.2); Alkaline Phosphatase 73 IU/L (40-130); Anion Gap 21.5 (5-19); Aspartate Amino Transferase 22 U/L (0-40); Blood Urea Nitrogen 14 mg/dL (6-20); Carbon Dioxide 20 mmol/L (22-29); Chloride 99 mmol/L (98-107); Globulin 3.5 g/dL (1.3-4.6); Glomerular Filtration Rate 132.4 mL/min (90-130); Glucose 129 mg/dL (65-115); Lipase 23 U/L (13-60); Osmolality Calculated 286 mOsm/kg (285-295); Potassium 3.5 mmol/L (3.5-5.1); Sodium 137 mmol/L (136-145); Total Bilirubin 1.1 mg/dL (0.15-1.2); Total Protein 8.6 g/dL (6.6-8.7)
[2021-09-09 18:28] VITALS: BP 164/96; PULSE 85; RESP 18; TEMP 36.8; O2SAT 96
[2021-09-09 18:30] VITALS: BP 164/94; PULSE 85; RESP 18; O2SAT 96
--- NOTE | 2021-09-09 18:48 | CTR_ITS ---
PROCEDURE INFORMATION: Exam: CT Abdomen And Pelvis Without Contrast Exam date and time: 09/09/2021 7:19 PM Age: 31 years old Clinical indication: Abdominal pain; Epigastric; Additional info: Epigastric pain, n/v TECHNIQUE: Imaging protocol: Computed tomography of the abdomen and pelvis without contrast. Radiation optimization: All CT scans at this facility use at least one of these dose optimization techniques: automated exposure control; mA and/or kV adjustment per patient size (includes targeted exams where dose is matched to clinical indication); or iterative reconstruction. COMPARISON: CT abdomen pelvis w con* [id number] 08/09/2021 10:59 AM RADIATION DOSE METRICS: Total DLP (mGy-cm): 1347.29 FINDINGS: Liver: Normal. No mass. Gallbladder and bile ducts: Normal. No calcified stones. No ductal dilation. Pancreas: Normal. No ductal dilation. Spleen: Normal. No splenomegaly. Adrenal glands: Normal. No mass. Kidneys and ureters: Normal. No hydronephrosis. Stomach and bowel: No intestinal obstruction. A large amount of stool is present in the colon. Appendix: The appendix is normal. Intraperitoneal space: Unremarkable. No free air. No significant fluid collection. Vasculature: Unremarkable. No abdominal aortic aneurysm. Lymph nodes: Unremarkable. No enlarged lymph nodes. Urinary bladder: Unremarkable as visualized. Reproductive: Unremarkable as visualized. Bones/joints: Unremarkable. No acute fracture. Soft tissues: Unremarkable. CT/CT abdomen pelvis con [id number] IMPRESSION: No acute abnormality is seen in the abdomen or pelvis. Possible constipation.
--- NOTE | 2021-09-09 18:50 | W.ED.NAVMDI ---
HPI - Nausea/Vomiting/Diarrhea General: Chief complaint: Nausea/Vomiting/Diarrhea Stated complaint: Cant stop throwing up Time Seen by Provider: 09/09/21 18:14 History of Present Illness: Patient is a 31-year-old male comes to the ED with nausea vomiting and abdominal pain. Past medical history of type 2 diabetes and gastritis. Patient says his blood sugars have been normal range over the past couple days. Symptoms started approximately 2 days ago. he has not been able to keep any food or fluids down. He has had multiple episodes of vomiting over the past couple days. He is having epigastric abdominal pain that he rates currently a 5 out of 10. Any p.o. food or fluids make pain worse. Denies any relieving factors for abdominal pain. Reports decreased urine output since he has not been drinking as much fluids over the past 48 hours. He had some diarrhea yesterday but that has resolved and he has not had any diarrhea today. Patient did say that his nephew came and visited him a couple days ago and he started developing same symptoms right before patient got sick. Associated nausea: Yes Associated symtoms: Reports nausea; Denies change in vision, chest pain, dysuria, fatigue, headache(s) or palpitations Review of Systems Const: Denies: fever(s), chills or fatigue Eyes: Denies: change in vision or eye discomfort ENMT: Denies: throat pain, odynophagia, nasal discharge or nasal congestion Card: Denies: chest pain, palpitations, edema, swelling of feet/ankles, dyspnea on exertion or orthopnea Resp: Denies: dyspnea, productive cough or non-productive cough GI: Reports: abdominal pain, nausea and vomiting; Denies: diarrhea, constipation or hematochezia : Denies: flank pain, difficulty urinating, dysuria or hematuria Musc: Denies: neck pain, back pain or extremity swelling Skin/Breast: Denies: rash or new lesions Neuro: Denies: headache(s), numbness in extremities or weakness in extremities [facility] ED PFSH: Medical History Asthma Contusion of lower back Family history of diabetes mellitus Father and two siblings Vomiting and diarrhea Weight loss, unintentional Surgical History No pertinent past surgical history Family History Father Diabetes Chronic kidney disease (CKD) Amputated below knee Mother Heart problem Social History Smoking and tobacco status: never smoked Quit status (tobacco): has tried quititng Second hand smoke exposure: Yes Smoking risk assessment/counseling performed?: Yes Alcohol intake: current Alcohol intake frequency: holidays/special occasions only Desire information about alcohol rehabilitation?: No Counseling given: No Desire information about substance/drug rehabilitation?: No Counseling given: Yes Adopted: No Caregiver/support person: No Lives independently: Yes Household members: spouse and children Housing: House Marital status: Number of children: 2 Highest education level completed: High School Graduate service: No Current occupational status: employed Sexually active: Yes Current gender identity: Male Agree to transfusion: Yes Physical Exam Const: COMMON NORMALS: no acute distress, patient oriented x3 and alert GENERAL APPEARANCE: cooperative and comfortable HENMT: COMMON NORMALS: normocephalic HEAD & SCALP: normocephalic MOUTH: Normal oral and palatal mucosa present THROAT: posterior oropharynx normal and uvula midline Eye: COMMON NORMALS: Equal, round and reactive pupils present and conjunctivae normal CONJUNCTIVA: Yes conjunctivae normal PUPIL: Yes Equal, round and reactive pupils present Neck/C-Spine: COMMON NORMALS: supple GENERAL: Yes normal visual inspection Resp: COMMON NORMALS: normal respiratory effort, No retractions, No use of accessory muscles and clear to auscultation bilaterally AUSCULTATION: clear to auscultation bilaterally Cardio: COMMON NORMALS: regular rate, regular rhythm, S1 normal heart sound present, S2 normal heart sound present, No gallops present (Cardio), No clicks present (Cardio), No murmurs present (Cardio) and Peripheral pulses 2+ throughout RATE: regular rate RHYTHM: regular rhythm HEART SOUNDS: S1 normal heart sound present and S2 normal heart sound present PERIPHERAL PULSES: Peripheral pulses 2+ throughout GI: COMMON NORMALS: Normal to inspection, nondistended, normoactive bowel sounds present, Soft to palpation and no masses PALPATION: Yes Soft to palpation and Yes Tenderness to palpation present (GI) Details: other (Epigastric) : COMMON NORMALS: Yes no CVA tenderness BLADDER/KIDNEY EXAM: Yes no CVA tenderness Back/Pelvis: COMMON NORMALS: no CVA tenderness Extremity: COMMON NORMALS: normal to inspection Neuro: COMMON NORMALS: patient oriented x3 and moves all extremities SENSORIUM/ORIENTATION: Yes alert Skin: GENERAL SKIN EXAM: dry skin Course Vital Signs: Vital signs: Vital Signs Temperature 98.3 F 09/09/21 18:28 Pulse Rate 83 09/09/21 22:14 Respiratory Rate 18 09/09/21 22:14 Blood Pressure 126/87 09/09/21 22:14 Pulse Oximetry 100 09/09/21 22:14 MDM - Nausea/Vomiting/Diarrhea Medical Decision Making Patient is a 31-year-old male comes to the ED with nausea, vomiting and abdominal pain. Patient has a history of type 2 diabetes. Says his blood sugars have been in normal range over the past couple days. Symptoms started approximately 2 days ago. Patient was recently in contact with a nephew that had same symptoms just before him. Vitals are stable and patient is afebrile. Patient appears nontoxic and in no acute distress or pain. He had some mild epigastric tenderness of the abdomen but rest of exam was benign. White blood cell count 11.6 but rest of CBC, UA and CMP were unremarkable. CT of abdomen showed no acute findings. Patient was given 1 L IV fluids, morphine and nausea meds and his symptoms improved. He was able to keep p.o. fluids down here in the ED. He was stable for discharge home and diagnosed with a likely viral syndrome. He was discharged home with a prescription for Zofran for nausea and told to follow-up with his PCP in the next 3 to 5 days for reevaluation. Return to ED precautions given. Patient understood and agreed with plan. Lab Data I reviewed the patient's lab results. : 09/09/21 16:03 09/09/21 16:03 Radiology Impressions Abdomen/Pelvis CT 09/09/21 18:48 IMPRESSION: No acute abnormality is seen in the abdomen or pelvis. Possible constipation. Laboratory Results WBC 11.6 10^3/uL (4.0-10.0) H 09/09/21 16:03 RBC 5.12 10^6/uL (4.1-5.3) 09/09/21 16:03 Hgb 15.1 g/dL (11.7-16.6) 09/09/21 16:03 Hct 44.1 % (42.0-52.0) 09/09/21 16:03 MCV 86.1 fl (80-94) 09/09/21 16:03 MCH 29.5 pg (28.0-34.0) 09/09/21 16:03 MCHC 34.2 g/dL (30.0-36.0) 09/09/21 16:03 RDW 12.3 % (12.1-15.1) 09/09/21 16:03 Plt Count 283 10^3/cmm (130-400) 09/09/21 16:03 MPV 10.6 fL (7.4-10.4) H 09/09/21 16:03 Neut % (Auto) 74.1 % 09/09/21 16:03 Lymph % (Auto) 18.9 % 09/09/21 16:03 [place] % (Auto) 6.0 % 09/09/21 16:03 Eos % (Auto) 0.3 % 09/09/21 16:03 Baso % (Auto) 0.4 % 09/09/21 16:03 Neut # (Auto) 8.60 10^3/uL (1.8-7.7) H 09/09/21 16:03 Lymph # (Auto) 2.2 10^3/uL (0.8-4.8) 09/09/21 16:03 [place] # (Auto) 0.7 10^3/uL (0.2-0.9) 09/09/21 16:03 Eos # (Auto) 0.0 10^3/uL (0.0-0.8) 09/09/21 16:03 Baso # (Auto) 0.1 10^3/uL (0.0-0.1) 09/09/21 16:03 Nucleated RBC % (auto) 0 % 09/09/21 16:03 Nucleated RBCs # 0.0 /100WBC 09/09/21 16:03 Sodium 137 mmol/L (136-145) 09/09/21 16:03 Potassium 3.5 mmol/L (3.5-5.1) 09/09/21 16:03 Chloride 99 mmol/L (98-107) 09/09/21 16:03 Carbon Dioxide 20 mmol/L (22-29) L 09/09/21 16:03 Anion Gap 21.5 (5-19) H 09/09/21 16:03 BUN 14 mg/dL (6-20) 09/09/21 16:03 Creatinine 0.7 mg/dL (0.7-1.2) 09/09/21 16:03 GFR Calculation 132.4 mL/min (90-130) H 09/09/21 16:03 Glucose 129 mg/dL (65-115) H 09/09/21 16:03 Calculated Osmolality 286 mOsm/kg (285-295) 09/09/21 16:03 Calcium 10.0 mg/dL (8.5-10.5) 09/09/21 16:03 Total Bilirubin 1.1 mg/dL (0.15-1.2) 09/09/21 16:03 AST 22 U/L (0-40) 09/09/21 16:03 ALT 26 U/L (0-41) 09/09/21 16:03 Alkaline Phosphatase 73 IU/L (40-130) 09/09/21 16:03 Total Protein 8.6 g/dL (6.6-8.7) 09/09/21 16:03 Albumin 5.1 g/dL (3.5-5.2) 09/09/21 16:03 Globulin 3.5 g/dL (1.3-4.6) 09/09/21 16:03 Lipase 23 U/L (13-60) 09/09/21 16:03 Urine Color Dark yellow (Yellow) 09/09/21 14:52 Urine Appearance Clear (CLEAR) 09/09/21 14:52 Urine pH 5 (5-7) 09/09/21 14:52 Ur Specific [place] 1.020 (1.005-1.030) 09/09/21 14:52 Urine Protein Trace (Negative) 09/09/21 14:52 Urine Glucose (UA) Norm (Normal) 09/09/21 14:52 Urine Ketones 2+ (Negative) H 09/09/21 14:52 Urine Blood Neg (Negative) 09/09/21 14:52 Urine Nitrate Negative (Negative) 09/09/21 14:52 Urine Bilirubin 1+ (Negative) H 09/09/21 14:52 Urine Urobilinogen 1 mg/dL (Negative) H 09/09/21 14:52 Ur Leukocyte Esterase Negative (Negative) 09/09/21 14:52 Urine RBC None /hpf (0-2) 09/09/21 14:52 Urine WBC 5-10 /hpf (0-5) H 09/09/21 14:52 Ur Squamous Epith Cells None /hpf (0-5) 09/09/21 14:52 Ur Transition Epith Cell 0-4 /hpf 09/09/21 14:52 Amorphous Sediment Not Reportable 09/09/21 14:52 Urine Bacteria Trace /hpf (NONE) 09/09/21 14:52 Urine Mucus 3+ /hpf 09/09/21 14:52 Discharge Plan Discharge Patient Disposition: Home Clinical Impression: Viral syndrome Condition: Stable Prescriptions: New ondansetron 4 mg tablet,disintegrating 4 mg PO Q8H PRN (Reason: nausea and vomiting) Qty: 15 0RF No Action (DME) blood-glucose meter [ReliOn Micro Glucose Monitor] Misc See Rx Instructions .Route Qty: 1 0RF Rx Instructions: Check BS 4 times a day (DME) ReliOn Prime Test Strips Strip See Rx Instructions .Route Qty: 100 3RF Rx Instructions: As directed metformin 500 mg tablet 500 mg PO DAILY Qty: 90 3RF albuterol sulfate [Ventolin HFA] 90 mcg/actuation HFA aerosol inhaler 2 puff inhalation Q6H PRN (Reason: shortness of breath or wheezing) Qty: 8.5 0RF Discharge Orders: Discharge ED (Routine); Ordered 09/09/21 Ordered By: Alan Aponte Discharge Diet: Advance as tolerated and Clear Liquid Discharge Activity: Increase activity as tolerated Patient Instructions: Clear Liquid Diet (ED), Viral Syndrome (ED) Activity Restrictions/Additional Instructions: Follow-up with medical provider as directed in the next 3 to 5 days for reevaluation. Take medications as prescribed. Have a clear liquid diet for the next 24 hours then slowly advance diet as tolerated. Make sure you drink plenty of fluids and stay hydrated. Return to the ER or your medical provider if condition worsens. Please read and understand discharge instructions. Thank you for choosing [facility] for your healthcare needs today. Please realize this is an emergency room and that we are providing you with a medical screening exam and this may not be complete and all inclusive of all the testing and or work up that you may need to determine your ailment or severity of your illness. It is very important that you follow up as instructed or that you return to the Emergency Department should you have concerns or if your condition changes or worsens in any way. Coding Level of Care Code ED Laundry Bag Punch Operator for Erica Covarrubias Exam Comprehensive
[2021-09-09] MEDS: ondansetron 2 mg/ML SDV 2 mL 4 MG IVP (18:57)
[2021-09-09] MEDS: sodium chloride 0.9% 1,000 ML 999 ML IV (19:01)
[2021-09-09 19:02] VITALS: RESP 20
[2021-09-09] MEDS: morphine 4 mg/mL SDV 1 mL IVP (19:02)
[2021-09-09] MEDS: metoclopramide 5 mg/mL SDV 2 mL 10 MG IVP (20:27)
[2021-09-09 22:14] VITALS: BP 126/87; PULSE 83; RESP 18; O2SAT 100
== END 2021-09-09 22:16 | disposition home or self-care (01) ==
PROVIDERS: Emergency Medicine; Emergency Provider Physician Assistant
DX: B34.9 Viral infection, unspecified (principal); R11.2 Nausea with vomiting, unspecified; E11.9 Type 2 diabetes mellitus without complications; Z79.84 Long term (current) use of oral hypoglycemic drugs
CPT/HCPCS: 36415; 74176; 80053; 81001; 83690; 85025; 96361; 96374; 96375; 99284; J2270; J2405; J2765; J7030

== ENCOUNTER → 2021-09-17 11:40 | Outpatient (BNVA) | payer BC, MEDICAID, SELFPAY | PROVIDERS: PCP Clinical Nurse Specialist Adult Health; Visit Provider Clinical Nurse Specialist Adult Health | DX: E11.9 Type 2 diabetes mellitus without complications (principal) | CPT/HCPCS: 83036 ==

== ENCOUNTER 2021-10-26 06:32 | Emergency (ER) | payer BC, MEDICAID, SELFPAY ==
[2021-10-26 06:40] VITALS: BP 166/96; PULSE 99; RESP 18; TEMP 36.5; O2SAT 99
--- NOTE | 2021-10-26 06:48 | XRR_ITS ---
PROCEDURE INFORMATION: Exam: XR Chest Exam date and time: 10/26/2021 6:53 AM Age: 31 years old Clinical indication: Pain; Chest pressure; Additional info: Cp TECHNIQUE: Imaging protocol: Radiologic exam of the chest. Views: 1 view. COMPARISON: CT chest abd pel w con* 02/18/2021 9:44 PM FINDINGS: Lungs: The lung parenchyma is clear. Pleural spaces: No pneumothorax. No pleural effusion. Heart/Mediastinum: The cardiomediastinal silhouette is within normal limits. Bones/joints: Unremarkable. XR/XR chest 1V portable [id number] IMPRESSION: No acute cardiopulmonary abnormality.
--- NOTE | 2021-10-26 06:49 | ECG_ITS ---
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 Measurements Intervals [place] Rate: 94 P: 57 MS: 167 QRS: 40 QRSD: 90 T: 48 QT: 336 QTc: 421 Interpretive Statements SINUS RHYTHM Compared to ECG 08/09/2021 08:53:02 Sinus tachycardia no longer present T-wave abnormality no longer present Electronically Signed On 10-26-2021 12:26:39 CDT by Ralph Acuña M.D. [id number] f
--- NOTE | 2021-10-26 06:50 | ED_ITS ---
HPI - Nausea/Vomiting/Diarrhea General: Chief complaint: Nausea/Vomiting/Diarrhea Stated complaint: n/v Time Seen by Provider: 10/26/21 06:43 History of Present Illness: 31-year-old with history of diabetes presents due to epigastric pain nausea vomiting and mild chest pain. States that this started last night. States he had nonbloody nonbilious emesis. Denies any diarrhea. States his chest pain has subsided and he was burning in sensation. Denies any radiation to back. Patient is PERC negative. Denies any fevers or chills. Denies any dysuria or urethral discharge. Review of Systems Narrative: - CONSTITUTIONAL: Denies weight loss, fever and chills. - HEENT: Denies changes in vision and hearing. - RESPIRATORY: Denies SOB and cough. - CV: As above - GI: As above - : Denies dysuria and urinary frequency. - MSK: Denies myalgia and joint pain. - SKIN: Denies rash and pruritus. - NEUROLOGICAL: Denies headache, weakness, numbness and syncope. - PSYCHIATRIC: Denies suicidal ideation PFSH ED PFSH: Medical History Asthma Contusion of lower back Family history of diabetes mellitus Father and two siblings Vomiting and diarrhea Weight loss, unintentional Surgical History No pertinent past surgical history Family History Father Diabetes Chronic kidney disease (CKD) Amputated below knee Mother Heart problem Social History Smoking and tobacco status: never smoked Quit status (tobacco): has tried quititng Second hand smoke exposure: Yes Smoking risk assessment/counseling performed?: Yes Alcohol intake: current Alcohol intake frequency: holidays/special occasions only Desire information about alcohol rehabilitation?: No Counseling given: No Desire information about substance/drug rehabilitation?: No Counseling given: Yes Adopted: No Caregiver/support person: No Lives independently: Yes Household members: spouse and children Housing: House Marital status: Number of children: 2 Highest education level completed: High School Graduate service: No Current occupational status: employed Sexually active: Yes Current gender identity: Male Agree to transfusion: Yes Physical Exam Narrative: EXAM NARRATIVE: - GENERAL: Alert and oriented x 3. No acute distress. Well-nourished. - EYES: EOMI. Anicteric. - HENT: Atraumatic, no C-spine tenderness. Moist mucous membranes. No scleral icterus. No cervical lymphadenopathy. - LUNGS: Clear to auscultation bilaterally. No accessory muscle use. Equal lung sounds bilaterally. No respiratory distress. - CARDIOVASCULAR: Regular rate and rhythm. No murmur. No JVD. - ABDOMEN: Soft, mild epigastric tenderness, non-distended. Negative CVA tenderness bilaterally, no rebound or guarding, negative Laonso sign. No palpable masses. - EXTREMITIES: No edema. Non-tender. - SKIN: No rashes or lesions. Warm. - NEUROLOGIC: No meningismus or focal neurological deficits. CN II-XII grossly intact. - PSYCHIATRIC: Cooperative. Appropriate mood and affect. Course Vital Signs: Vital signs: Vital Signs Temperature 97.7 F 10/26/21 06:40 Pulse Rate 99 10/26/21 12:00 Respiratory Rate 18 10/26/21 12:00 Blood Pressure 137/71 10/26/21 12:00 Pulse Oximetry 98 10/26/21 12:00 MDM - Nausea/Vomiting/Diarrhea Medical Decision Making 31-year-old presents due to epigastric pain chest pain after several episodes of vomiting. Has no acute elevation to 17. CT scan does not reveal any sign of esophageal perforation pneumonia PE or intra-abdominal perforation obstruction or other acute abnormality. Remainder of lab work is unremarkable except for UDS positive for cannabinoids. Suspect cyclic vomiting syndrome. Tolerated p.o. challenge after Zofran. Prescription for Zofran and Pepcid provided. EKG and troponin do not reveal any sign of acute ischemia or acute abnormality. At this time I believe patient would be safe for discharge and outpatient follow- up. Return precautions provided. Plan was reviewed with the patient who expressed understanding. Questions answered. Patient will follow up with PCP. Patient discharged in stable condition. Lab Data : 10/26/21 07:20 10/26/21 07:20 Radiology Impressions Chest X-Ray 10/26/21 06:48 IMPRESSION: No acute cardiopulmonary abnormality. Chest/Abdomen/Pelvis CT 10/26/21 10:32 IMPRESSION: No acute thoracic abnormality identified. IMPRESSION: No acute abdominopelvic abnormality identified. Laboratory Results WBC 17.8 10^3/uL (4.0-10.0) H 10/26/21 07:20 RBC 5.22 10^6/uL (4.1-5.3) 10/26/21 07:20 Hgb 15.7 g/dL (11.7-16.6) 10/26/21 07:20 Hct 43.5 % (42.0-52.0) 10/26/21 07:20 MCV 83.3 fl (80-94) 10/26/21 07:20 MCH 30.1 pg (28.0-34.0) 10/26/21 07:20 MCHC 36.1 g/dL (30.0-36.0) H 10/26/21 07:20 RDW 12.2 % (12.1-15.1) 10/26/21 07:20 Plt Count 303 10^3/cmm (130-400) 10/26/21 07:20 MPV 11.1 fL (7.4-10.4) H 10/26/21 07:20 Neut % (Auto) 87.2 % 10/26/21 07:20 Lymph % (Auto) 8.2 % 10/26/21 07:20 [place] % (Auto) 3.8 % 10/26/21 07:20 Eos % (Auto) 0.0 % 10/26/21 07:20 Baso % (Auto) 0.2 % 10/26/21 07:20 Neut # (Auto) 15.47 10^3/uL (1.8-7.7) H 10/26/21 07:20 Lymph # (Auto) 1.5 10^3/uL (0.8-4.8) 10/26/21 07:20 [place] # (Auto) 0.7 10^3/uL (0.2-0.9) 10/26/21 07:20 Eos # (Auto) 0.0 10^3/uL (0.0-0.8) 10/26/21 07:20 Baso # (Auto) 0.0 10^3/uL (0.0-0.1) 10/26/21 07:20 Nucleated RBC % (auto) 0 % 10/26/21 07:20 Nucleated RBCs # 0.0 /100WBC 10/26/21 07:20 Sodium 138 mmol/L (136-145) 10/26/21 07:20 Potassium 3.6 mmol/L (3.5-5.1) 10/26/21 07:20 Chloride 99 mmol/L (98-107) 10/26/21 07:20 Carbon Dioxide 21 mmol/L (22-29) L 10/26/21 07:20 Anion Gap 21.6 (5-19) H 10/26/21 07:20 BUN 14 mg/dL (6-20) 10/26/21 07:20 Creatinine 0.7 mg/dL (0.7-1.2) 10/26/21 07:20 GFR Calculation 132.4 mL/min (90-130) H 10/26/21 07:20 Glucose 194 mg/dL (65-115) H 10/26/21 07:20 Calculated Osmolality 292 mOsm/kg (285-295) 10/26/21 07:20 Calcium 9.3 mg/dL (8.5-10.5) 10/26/21 07:20 Total Bilirubin 1.0 mg/dL (0.15-1.2) 10/26/21 07:20 AST 16 U/L (0-40) 10/26/21 07:20 ALT 19 U/L (0-41) 10/26/21 07:20 Alkaline Phosphatase 81 IU/L (40-130) 10/26/21 07:20 Troponin T Baseline 15 ng/L (0-15) 10/26/21 07:20 Total Protein 8.4 g/dL (6.6-8.7) 10/26/21 07:20 Albumin 4.9 g/dL (3.5-5.2) 10/26/21 07:20 Globulin 3.5 g/dL (1.3-4.6) 10/26/21 07:20 Lipase 17 U/L (13-60) 10/26/21 07:20 Urine Color Yellow (Yellow) 10/26/21 09:49 Urine Appearance Clear (CLEAR) 10/26/21 09:49 Urine pH 6 (5-7) 10/26/21 09:49 Ur Specific [place] 1.025 (1.005-1.030) 10/26/21 09:49 Urine Protein Neg (Negative) 10/26/21 09:49 Urine Glucose (UA) Norm (Normal) 10/26/21 09:49 Urine Ketones Negative (Negative) 10/26/21 09:49 Urine Blood Neg (Negative) 10/26/21 09:49 Urine Nitrate Negative (Negative) 10/26/21 09:49 Urine Bilirubin Neg (Negative) 10/26/21 09:49 Urine Urobilinogen Norm mg/dL (Negative) 10/26/21 09:49 Ur Leukocyte Esterase Negative (Negative) 10/26/21 09:49 Urine RBC None /hpf (0-2) 10/26/21 09:49 Urine WBC None /hpf (0-5) 10/26/21 09:49 Ur Squamous Epith Cells None /hpf (0-5) 10/26/21 09:49 Amorphous Sediment Not Reportable 10/26/21 09:49 Urine Bacteria None /hpf (NONE) 10/26/21 09:49 Urine Mucus Trace /hpf 10/26/21 09:49 Urine Opiates Screen Negative ng/mL (Negative) 10/26/21 09:49 Ur Barbiturates Screen Negative ng/mL (Negative) 10/26/21 09:49 Ur Phencyclidine Scrn Negative ng/mL (Negative) 10/26/21 09:49 Ur Amphetamines Screen Negative ng/mL (Negative) 10/26/21 09:49 U Benzodiazepines Scrn Negative ng/mL (Negative) 10/26/21 09:49 Urine Cocaine Screen Negative ng/mL (Negative) 10/26/21 09:49 U Marijuana (THC) Screen Positive ng/mL (Negative) H 10/26/21 09:49 EKG Data EKG 1: Other EKG comments: Normal sinus rhythm, no sign of acute ischemia or other acute abnormality. Discharge Plan Discharge Condition: Stable Prescriptions: No Action (DME) blood-glucose meter [ReliOn Micro Glucose Monitor] Misc See Rx Instructions .Route Qty: 1 0RF Rx Instructions: Check BS 4 times a day (DME) ReliOn Prime Test Strips Strip See Rx Instructions .Route Qty: 100 3RF Rx Instructions: As directed albuterol sulfate [Ventolin HFA] 90 mcg/actuation HFA aerosol inhaler 2 puff inhalation Q6H PRN (Reason: shortness of breath or wheezing) Qty: 8.5 0RF glimepiride 1 mg tablet See Rx Instructions .ROUTE .COMPLEX 0RF Rx Instructions: 1 mg orally as directed by Referrals: Daniel Soria, NURSING EDUCATOR [Nurse Practitioner] - Coding Level of Care Code ED Special Education Preschool Teacher for Erica Covarrubias
[2021-10-26] MEDS: lidocaine 2% viscous 15 ML, aluminum-mag hydrox-simethicon 30 ML, sucralfate oral liq 1 GM PO (07:20)
[2021-10-26] MEDS: ondansetron 2 mg/ML SDV 2 mL 4 MG IVP (07:20)
[2021-10-26] MEDS: sodium chloride 0.9% 1,000 ML 999 ML IV (07:20)
[2021-10-26 07:54] LABS: Basophils % 0.2 %; Hematocrit 43.5 % (42.0-52.0); Hemoglobin 15.7 g/dL (11.7-16.6); Lymphocytes # 1.5 10^3/uL (0.8-4.8); Lymphocytes % 8.2 %; Mean Corpuscular HGB Conc 36.1 g/dL (30.0-36.0); Mean Corpuscular Hemoglobin 30.1 pg (28.0-34.0); Mean Corpuscular Volume 83.3 fl (80-94); Mean Platelet Volume 11.1 fL (7.4-10.4); Monocytes # 0.7 10^3/uL (0.2-0.9); Monocytes % 3.8 %; Neutrophils # 15.47 10^3/uL (1.8-7.7); Neutrophils % 87.2 %; Nucleated Red Blood Cells % 0 %; Platelet Count 303 10^3/cmm (130-400); Red Blood Count 5.22 10^6/uL (4.1-5.3); Red Cell Distribution Width 12.2 % (12.1-15.1); White Blood Count 17.8 10^3/uL (4.0-10.0)
[2021-10-26 08:14] LABS: Alanine Aminotransferase 19 U/L (0-41); Albumin Level 4.9 g/dL (3.5-5.2); Alkaline Phosphatase 81 IU/L (40-130); Anion Gap 21.6 (5-19); Aspartate Amino Transferase 16 U/L (0-40); Blood Urea Nitrogen 14 mg/dL (6-20); Calcium 9.3 mg/dL (8.5-10.5); Carbon Dioxide 21 mmol/L (22-29); Chloride 99 mmol/L (98-107); Globulin 3.5 g/dL (1.3-4.6); Glomerular Filtration Rate 132.4 mL/min (90-130); Glucose 194 mg/dL (65-115); Lipase 17 U/L (13-60); Osmolality Calculated 292 mOsm/kg (285-295); Potassium 3.6 mmol/L (3.5-5.1); Sodium 138 mmol/L (136-145); Total Protein 8.4 g/dL (6.6-8.7)
[2021-10-26 08:15] LABS: Troponin(5th) Baseline 15 ng/L (0-15)
[2021-10-26 09:39] VITALS: BP 117/90; PULSE 91; RESP 18; O2SAT 100
--- NOTE | 2021-10-26 09:43 | PC.NURSE ---
Patient unable to urinate at this time.
[2021-10-26 10:13] LABS: Amphetamines Screen Urine Negative (Negative); Barbiturates Screen Urine Negative (Negative); Benzodiazepines Screen Urine Negative (Negative); Cocaine Screen Urine Negative (Negative); Opiate Screen Urine Negative (Negative); PCP Screen Urine Negative (Negative); THC Screen Urine Positive (Negative)
[2021-10-26 10:16] LABS: Bilirubin Urine Neg (Negative); Blood Urine Neg (Negative); Glucose Urine UA Norm (Normal); Ketones Urine Negative (Negative); Leukocyte Esterase Urine Negative (Negative); Nitrate Urine Negative (Negative); Protein Urine Neg (Negative); Specific Gravity, Urine 1.025 (1.005-1.030); Urine Appearance Clear (CLEAR); Urine Color Yellow (Yellow); Urobilinogen Urine Norm (Negative); pH Urine 6 (5-7)
[2021-10-26 10:18] LABS: Add Urine Culture? No; Mucus Urine TRACE /hpf
--- NOTE | 2021-10-26 10:32 | CTR_ITS ---
PROCEDURE INFORMATION: Exam: CT Chest With Contrast; Diagnostic Exam date and time: 10/26/2021 10:50 AM Age: 31 years old Clinical indication: Abdominal pain; Epigastric; Chest pressure; Additional info: Emesis, cp, elevated wbc TECHNIQUE: Imaging protocol: Diagnostic computed tomography of the chest with contrast. Radiation optimization: All CT scans at this facility use at least one of these dose optimization techniques: automated exposure control; mA and/or kV adjustment per patient size (includes targeted exams where dose is matched to clinical indication); or iterative reconstruction. Contrast material: OMNI 350; Contrast volume: 90 ml; Contrast route: INTRAVENOUS (IV); COMPARISON: CT chest abd pel w con* 02/18/2021 9:44 PM RADIATION DOSE METRICS: Total DLP (mGy-cm): 1243.32 FINDINGS: Lungs: Unremarkable. No consolidation. No masses. Pleural spaces: Unremarkable. No pneumothorax. No pleural effusion. Heart: The heart is within normal limits for size. There is no evidence of pericardial abnormality. No coronary artery calcifications noted. Lymph nodes: Unremarkable. No enlarged lymph nodes. Vasculature: Unremarkable. No aortic aneurysm. Bones/joints: Unremarkable. No acute fracture. Soft tissues: Unremarkable. PROCEDURE INFORMATION: Exam: CT Abdomen And Pelvis With Contrast Exam date and time: 10/26/2021 10:50 AM Age: 31 years old Clinical indication: Abdominal pain; Epigastric; Chest pressure; Additional info: Emesis, cp, elevated wbc TECHNIQUE: Imaging protocol: Computed tomography of the abdomen and pelvis with contrast. Radiation optimization: All CT scans at this facility use at least one of these dose optimization techniques: automated exposure control; mA and/or kV adjustment per patient size (includes targeted exams where dose is matched to clinical indication); or iterative reconstruction. Contrast material: OMNI 350; Contrast volume: 90 ml; Contrast route: INTRAVENOUS (IV); COMPARISON: 1. CT abdomen pelvis w con* [id number] 08/09/2021 10:[address] abdomen pelvis wo con [id number] 09/09/2021 7:19 PM RADIATION DOSE METRICS: Total DLP (mGy-cm): 1243.32 FINDINGS: Lungs: The visualized lung bases demonstrate no focal airspace opacification or pleural effusion. Heart: The visualized heart is within normal limits for size. There is no evidence of pericardial abnormality. Liver: The liver is normal in size and contour. Gallbladder and bile ducts: The gallbladder is distended with normal wall thickness and does not demonstrate calcified gallstones. No intra- or extra-hepatic biliary ductal dilatation. Pancreas: The pancreas appears normal. Spleen: The spleen appears normal. Adrenal glands: The adrenals appear normal. Kidneys and ureters: The kidneys enhance symmetrically and empty into non-dilated ureters. Stomach and bowel: The stomach is unremarkable. The small bowel loops are not abnormally dilated. The large bowel loops are not abnormally dilated. Appendix: The appendix appears normal. Intraperitoneal space: No ascites or significant fluid collection. Vasculature: The aorta is nonaneurysmal. The IVC appears normal. Lymph nodes: There are no enlarged lymph nodes. Urinary bladder: The urinary bladder is not well distended, therefore not well evaluated. Reproductive: The prostate is unremarkable. The seminal vesicles are unremarkable. Bones/joints: Unremarkable. Soft tissues: Unremarkable. CT/CT chest abd pel w con* IMPRESSION: No acute thoracic abnormality identified. IMPRESSION: No acute abdominopelvic abnormality identified.
[2021-10-26] MEDS: iohexol 350 mg/mL 100 mL Btl IV (10:51)
[2021-10-26 12:00] VITALS: BP 137/71; PULSE 99; RESP 18; O2SAT 98
[2021-10-26] MEDS: metoclopramide 5 mg/mL SDV 2 mL 10 MG IVP (13:10)
[2021-10-26 13:19] VITALS: BP 157/99; PULSE 98; RESP 16; O2SAT 100
== END 2021-10-26 13:36 | disposition home or self-care (01) ==
PROVIDERS: Emergency Provider Emergency Medicine
DX: R10.13 Epigastric pain (principal); R11.2 Nausea with vomiting, unspecified; R07.9 Chest pain, unspecified; Z79.84 Long term (current) use of oral hypoglycemic drugs; Z77.22 Contact with and (suspected) exposure to environmental tobacco smoke (acute) (chronic)
CPT/HCPCS: 71045; 71260; 74177; 80053; 80306; 81001; 83690; 84484; 85025; 93005; 96361; 96374; 96375; 99285; J2405; J2765; J7030; Q9967

== ENCOUNTER → 2022-01-08 11:57 | Outpatient (BNVA) | payer BC, MEDICAID, SELFPAY | PROVIDERS: Visit Provider Clinical Nurse Specialist Adult Health | DX: E11.65 Type 2 diabetes mellitus with hyperglycemia (principal) | CPT/HCPCS: 83036 ==

== ENCOUNTER 2022-05-24 09:50 | Emergency (ER) | payer BC, MEDICAID, SELFPAY ==
[2022-05-24 10:03] VITALS: BP 138/97; PULSE 114; RESP 18; TEMP 36.4; O2SAT 99
[2022-05-24 10:04] LABS: Glucose Point of Care 268 mg/dL (70-110)
--- NOTE | 2022-05-24 10:09 | W.ED.NAVMDI ---
HPI - Nausea/Vomiting/Diarrhea General: Chief complaint: Nausea/Vomiting/Diarrhea Stated complaint: Blood sugar issues Time Seen by Provider: 05/24/22 09:54 Source: patient Mode of arrival: ambulatory Limitations: no limitations History of Present Illness: 32-year-old male who has history of type 2 diabetes he states he recently switched from metformin to glimepiride states of last 3 to 4 days been having some abdominal cramping along with nausea vomiting diarrhea he states that his blood sugars been running higher than typical he rates 260s. He denies any chest pain denies any worsening improving factors. Associated nausea: Yes Associated symtoms: Reports nausea; Denies chest pain, dysuria or headache(s) Review of Systems Const: Denies: fever(s), chills, body aches or change in appetite Eyes: Denies: blurry vision or eye discomfort ENMT: Denies: throat pain or dental pain Card: Denies: chest pain Resp: Denies: dyspnea GI: Reports: nausea and vomiting : Denies: dysuria Musc: Denies: neck pain or back pain Skin/Breast: Denies: rash Neuro: Denies: headache(s) Psych: Denies: depression Neal/Lymph: Denies: easy bruising All/Imm: Denies: urticaria PFSH ED PFSH: Medical History Asthma Borderline high blood pressure Contusion of lower back Diabetes type 2, uncontrolled Family history of diabetes mellitus Father and two siblings Hx of gastric ulcer Vomiting and diarrhea Weight loss, unintentional Surgical History No pertinent past surgical history Family History Father Diabetes Chronic kidney disease (CKD) Amputated below knee Mother Heart problem Social History (Updated 02/26/22 @ 07:45 by Daniel Soria NP) Smoking and tobacco status: former smoker Quit status (tobacco): has tried quititng Second hand smoke exposure: Yes Smoking risk assessment/counseling performed?: Yes Alcohol intake: current Alcohol intake frequency: holidays/special occasions only Desire information about alcohol rehabilitation?: No Counseling given: No Desire information about substance/drug rehabilitation?: No Counseling given: Yes Adopted: No Caregiver/support person: No Lives independently: Yes Household members: spouse and children Housing: House Marital status: Number of children: 2 Highest education level completed: High School Graduate service: No Current occupational status: employed Sexually active: Yes Current gender identity: Male Agree to transfusion: Yes Physical Exam Const: COMMON NORMALS: no acute distress, patient oriented x3 and healthy appearing HENMT: COMMON NORMALS: normocephalic and atraumatic HEAD & SCALP: normocephalic and atraumatic Eye: COMMON NORMALS: Equal, round and reactive pupils present and EOMs intact bilaterally PUPIL: Yes Equal, round and reactive pupils present Neck/C-Spine: COMMON NORMALS: full ROM and supple Chest: COMMONS NORMALS: normal inspection of the chest and normal palpation of entire chest wall Resp: COMMON NORMALS: normal respiratory effort, No retractions, No use of accessory muscles and clear to auscultation bilaterally AUSCULTATION: clear to auscultation bilaterally Cardio: COMMON NORMALS: regular rhythm and No murmurs present (Cardio) RATE: tachycardic RHYTHM: regular rhythm GI: COMMON NORMALS: Normal to inspection, nondistended, normoactive bowel sounds present, Soft to palpation, non-tender and no masses PALPATION: Yes Soft to palpation Extremity: COMMON NORMALS: normal to inspection and full ROM Neuro: COMMON NORMALS: patient oriented x3, moves all extremities and no focal motor deficits Psych: COMMON NORMALS: mental status grossly normal, Normal thought process present and cooperative THOUGHT PROCESS: Normal thought process present Skin: COMMON NORMALS: no rashes or lesions noted and no wounds GENERAL SKIN EXAM: no rashes or lesions noted Course Vital Signs: Vital signs: Vital Signs Temperature 97.6 F 05/24/22 10:03 Pulse Rate 101 H 05/24/22 11:37 Respiratory Rate 18 05/24/22 11:37 Blood Pressure 157/101 05/24/22 11:37 Pulse Oximetry 99 05/24/22 11:37 Oxygen Delivery Me thod 05/24/22 11:37 MDM - Nausea/Vomiting/Diarrhea Medical Decision Making Patient presents with vomiting on diarrhea is likely viral in origin blood sugar here has been normal he feels much improved here after Zofran and his heart rate improved as well he is stable for discharge we will prescribe Zofran for home he is to follow-up with PCP and return if worsening. Lab Data 05/24/22 11:11 05/24/22 11:11 Laboratory Results WBC 14.5 10^3/uL (4.0-10.0) H 05/24/22 11:11 Corrected WBC Cancelled 05/24/22 10:34 RBC 5.10 10^6/uL (4.1-5.3) 05/24/22 11:11 Hgb 15.1 g/dL (11.7-16.6) 05/24/22 11:11 Hct 43.5 % (42.0-52.0) 05/24/22 11:11 MCV 85.3 fl (80-94) 05/24/22 11:11 MCH 29.6 pg (28.0-34.0) 05/24/22 11:11 MCHC 34.7 g/dL (30.0-36.0) 05/24/22 11:11 RDW 11.9 % (12.1-15.1) L 05/24/22 11:11 Plt Count 134 10^3/cmm (130-400) 05/24/22 11:11 MPV 11.3 fL (7.4-10.4) H 05/24/22 11:11 Gran % Cancelled 05/24/22 10:34 Neut % (Auto) 80.5 % 05/24/22 11:11 Lymph % (Auto) 12.8 % 05/24/22 11:11 [place] % (Auto) 6.1 % 05/24/22 11:11 Eos % (Auto) 0.1 % 05/24/22 11:11 Baso % (Auto) 0.2 % 05/24/22 11:11 Neut # (Auto) 11.68 10^3/uL (1.8-7.7) H 05/24/22 11:11 Lymph # (Auto) 1.9 10^3/uL (0.8-4.8) 05/24/22 11:11 [place] # (Auto) 0.9 10^3/uL (0.2-0.9) 05/24/22 11:11 Eos # (Auto) 0.0 10^3/uL (0.0-0.8) 05/24/22 11:11 Baso # (Auto) 0.0 10^3/uL (0.0-0.1) 05/24/22 11:11 Absolute Gran (auto) Cancelled 05/24/22 10:34 Nucleated RBC % (auto) 0 % 05/24/22 11:11 Nucleated RBCs # 0.0 /100WBC 05/24/22 11:11 Specimen Type Arterial 05/24/22 10:20 Sample Site Radial, right 05/24/22 10:20 ABG pH 7.55 (7.35-7.45) H 05/24/22 10:20 ABG pCO2 31.3 mmHg (35-45) L 05/24/22 10:20 ABG pO2 84.1 mmHg (80.0-100.0) 05/24/22 10:20 ABG HCO3 27.1 mmol/L (22-26) H 05/24/22 10:20 ABG Base Excess 5.2 mmol/L (-2.0-2.0) H 05/24/22 10:20 Sina Test Pos 05/24/22 10:20 Hematocrit 48.3 % (42-52) 05/24/22 10:20 O2 Delivery Device Room air 05/24/22 10:20 FiO2 21.0 % 05/24/22 10:20 Cardiac Catheterization Technologist ID Gd 05/24/22 10:20 Sodium 136 mmol/L (136-145) 05/24/22 11:11 Potassium 3.4 mmol/L (3.5-5.1) L 05/24/22 11:11 Chloride 95 mmol/L (98-107) L 05/24/22 11:11 Carbon Dioxide 25 mmol/L (22-29) 05/24/22 11:11 Anion Gap 19.4 (5-19) H 05/24/22 11:11 BUN 15 mg/dL (6-20) 05/24/22 11:11 Creatinine 0.7 mg/dL (0.7-1.2) 05/24/22 11:11 GFR Calculation 131.5 mL/min (90-130) H 05/24/22 11:11 Glucose 162 mg/dL (65-115) H 05/24/22 11:11 POC Glucose 268 mg/dL (70-110) H 05/24/22 09:59 Calculated Osmolality 286 mOsm/kg (285-295) 05/24/22 11:11 Calcium 9.1 mg/dL (8.5-10.5) 05/24/22 11:11 Total Bilirubin 1.3 mg/dL (0.15-1.2) H 05/24/22 11:11 AST 18 U/L (0-40) 05/24/22 11:11 ALT 22 U/L (0-41) 05/24/22 11:11 Alkaline Phosphatase 77 U/L (40-130) 05/24/22 11:11 Total Protein 8.2 g/dL (6.6-8.7) 05/24/22 11:11 Albumin 5.0 g/dL (3.5-5.2) 05/24/22 11:11 Globulin 3.2 g/dL (1.3-4.6) 05/24/22 11:11 Lipase 23 U/L (13-60) 05/24/22 11:11 Discharge Plan Discharge Patient Disposition: Home Clinical Impression: Nausea and vomiting Condition: Stable Prescriptions: New ondansetron 4 mg tablet,disintegrating 4 mg PO Q6H PRN (Reason: nausea and vomiting) Qty: 14 0RF No Action (DME) blood-glucose meter [ReliOn Micro Glucose Monitor] Misc See Rx Instructions .Route Qty: 1 0RF Rx Instructions: Check BS 4 times a day (DME) ReliOn Prime Test Strips Strip See Rx Instructions .Route Qty: 100 3RF Rx Instructions: As directed pantoprazole 40 mg tablet,delayed release (DR/EC) 40 mg PO DAILY Qty: 90 3RF albuterol sulfate [Ventolin HFA] 90 mcg/actuation HFA aerosol inhaler 2 puff inhalation Q6H PRN (Reason: shortness of breath or wheezing) Qty: 8.5 3RF All Day Allergy (cetirizine) 10 mg capsule 10 mg PO DAILY Qty: 30 3RF glimepiride 1 mg tablet 1 mg PO DAILY Qty: 90 0RF Discharge Orders: Discharge ED (Routine); Ordered 05/24/22 Ordered By: Latonya Molina Referrals: Daniel Soria, SHEET METAL MECHANIC [Primary Care Provider] - 1-3 days Discharge Diet: Advance as tolerated Discharge Activity: Resume usual activity Patient Instructions: Acute Nausea and Vomiting (ED) Coding Level of Care Code ED Brusher Warp for Chg Satish Exam Comprehensive
[2022-05-24] MEDS: LORazepam 2 mg/mL INJ 1 mL 1 MG IVP (10:30)
[2022-05-24] MEDS: sodium chloride 0.9% 1,000 ML 999 ML IV (10:30)
[2022-05-24] MEDS: ondansetron 2 mg/ML SDV 2 mL 4 MG IVP (10:30)
[2022-05-24 10:35] LABS: ABG PCO2 31.3 mmHg (35-45); ABG PH Result 7.55 (7.35-7.45); Arterial Blood Gas Hematocrit 48.3 % (42-52); Base Excess ABG 5.2 mmol/L (-2.0-2.0); Blood Gas Allen Test Pos; Blood Gas Operator Identificat GD; Blood Gas Sample Site Radial, right; Blood Gas Sample Type Arterial; HCO3 ABG 27.1 mmol/L (22-26); Oxygen Device ROOM AIR; PO2 ABG 84.1 mmHg (80.0-100.0)
[2022-05-24 11:07] VITALS: BP 167/101; PULSE 106; RESP 18; O2SAT 98
[2022-05-24 11:23] LABS: Basophils % 0.2 %; Eosinophils % 0.1 %; Hematocrit 43.5 % (42.0-52.0); Hemoglobin 15.1 g/dL (11.7-16.6); Lymphocytes # 1.9 10^3/uL (0.8-4.8); Lymphocytes % 12.8 %; Mean Corpuscular HGB Conc 34.7 g/dL (30.0-36.0); Mean Corpuscular Hemoglobin 29.6 pg (28.0-34.0); Mean Corpuscular Volume 85.3 fl (80-94); Mean Platelet Volume 11.3 fL (7.4-10.4); Monocytes # 0.9 10^3/uL (0.2-0.9); Monocytes % 6.1 %; Neutrophils # 11.68 10^3/uL (1.8-7.7); Neutrophils % 80.5 %; Nucleated Red Blood Cells % 0 %; Platelet Count 134 10^3/cmm (130-400); Red Cell Distribution Width 11.9 % (12.1-15.1); White Blood Count 14.5 10^3/uL (4.0-10.0)
[2022-05-24] MEDS: labetalol 5 mg/mL SDV 20mL 10 MG IVP (11:34)
[2022-05-24 11:36] LABS: Alanine Aminotransferase 22 U/L (0-41); Alkaline Phosphatase 77 U/L (40-130); Anion Gap 19.4 (5-19); Aspartate Amino Transferase 18 U/L (0-40); Blood Urea Nitrogen 15 mg/dL (6-20); Calcium 9.1 mg/dL (8.5-10.5); Carbon Dioxide 25 mmol/L (22-29); Chloride 95 mmol/L (98-107); Globulin 3.2 g/dL (1.3-4.6); Glomerular Filtration Rate 131.5 mL/min (90-130); Glucose 162 mg/dL (65-115); Lipase 23 U/L (13-60); Osmolality Calculated 286 mOsm/kg (285-295); Potassium 3.4 mmol/L (3.5-5.1); Sodium 136 mmol/L (136-145); Total Bilirubin 1.3 mg/dL (0.15-1.2); Total Protein 8.2 g/dL (6.6-8.7)
[2022-05-24 11:37] VITALS: BP 157/101; PULSE 101; RESP 18; O2SAT 99
[2022-05-24 12:00] VITALS: BP 139/84; PULSE 116; RESP 18; O2SAT 100
[2022-05-24 12:10] VITALS: BP 139/84; PULSE 114; O2SAT 100
== END 2022-05-24 12:11 | disposition home or self-care (01) ==
PROVIDERS: Emergency Provider Emergency Medicine; PCP Clinical Nurse Specialist Adult Health
DX: R11.2 Nausea with vomiting, unspecified (principal); Z79.84 Long term (current) use of oral hypoglycemic drugs; Z87.891 Personal history of nicotine dependence; E11.9 Type 2 diabetes mellitus without complications
CPT/HCPCS: 36415; 36416; 36600; 80053; 82803; 82962; 83690; 85025; 96361; 96374; 96375; 99284; J2060; J2405; J3490; J7030

== ENCOUNTER → 2022-07-25 07:48 | Outpatient (BNVA) | payer BC, MEDICAID, SELFPAY | PROVIDERS: PCP Clinical Nurse Specialist Adult Health; Visit Provider Clinical Nurse Specialist Adult Health | DX: E11.9 Type 2 diabetes mellitus without complications (principal) | CPT/HCPCS: 80053; 83036; 85025 ==

== ENCOUNTER → 2023-03-25 16:07 | Outpatient (BNVA) | payer BC, MEDICAID, SELFPAY | PROVIDERS: PCP Clinical Nurse Specialist Adult Health; Visit Provider Clinical Nurse Specialist Adult Health | DX: E11.9 Type 2 diabetes mellitus without complications (principal); J45.909 Unspecified asthma, uncomplicated | CPT/HCPCS: 80053; 80061; 83036 ==

== ENCOUNTER → 2023-06-24 15:04 | Outpatient (BNVA) | payer BC, MEDICAID, SELFPAY | PROVIDERS: PCP Clinical Nurse Specialist Adult Health; Visit Provider Clinical Nurse Specialist Adult Health | DX: E11.9 Type 2 diabetes mellitus without complications (principal) | CPT/HCPCS: 80053; 83036; 85025 ==

== ENCOUNTER → 2023-09-29 15:56 | Outpatient (BNVA) | payer MEDICAID, SELFPAY | PROVIDERS: PCP Clinical Nurse Specialist Adult Health; Visit Provider Clinical Nurse Specialist Adult Health | DX: E11.9 Type 2 diabetes mellitus without complications (principal); R03.0 Elevated blood-pressure reading, without diagnosis of hypertension | CPT/HCPCS: 80053; 80061; 83036; 85025 ==

== ENCOUNTER → 2024-04-04 10:07 | Outpatient (BNVA) | payer MEDICAID, SELFPAY | PROVIDERS: PCP Clinical Nurse Specialist Adult Health; Visit Provider Family Medicine | DX: Z51.81 Encounter for therapeutic drug level monitoring (principal); E11.9 Type 2 diabetes mellitus without complications; E53.8 Deficiency of other specified B group vitamins; R53.81 Other malaise; R53.83 Other fatigue | CPT/HCPCS: 80053; 82607; 83036; 84443; 85025 ==

== ENCOUNTER 2024-10-20 15:56 | Emergency (ER) | payer MEDICAID, SELFPAY ==
[2024-10-20 16:01] VITALS: BP 133/71; PULSE 115; TEMP 36.3; O2SAT 97; BMI 28.3
--- OUTSIDE RECORDS SUMMARY | 2024-10-20 16:31 | XMS_ITS | Clinical Summary ---
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
--- NOTE | 2024-10-20 17:55 | ED_ITS ---
HPI - Back Pain/Injury General: Chief Complaint: Back Pain/Injury Stated Complaint: back pain Time Seen by Provider: 10/20/24 17:41 History of Present Illness: Patient is a 34-year-old type I DM, was lifting something heavy when bending, and it felt like his back pinched him on the right side. He complains of pain on right L1-L2 to the paraspinous muscles. He states he has radiation down the side of his leg as well and admits to SI joint on the right pain. No nausea, vomiting. Has difficulty standing as he puts his hands down on the chair to stand straight. No dysuria inability to void, saddle anesthesia, or incontinence with voiding or BM. Denies previous back surgery. When this occurred, patient stated he started having severe pain 30 minutes after occurrence, however did not have bowel, bladder dysfunction or saddle anesthesia at that time either. He has never had pain like this he states. Associated symptoms: Deny abdominal pain, chills, fever(s), nausea or vomiting Related Data Previous Rx's ?Medication ?Instructions ?Recorded blood sugar diagnostic (ReliOn #100 ea 02/28/21 Prime Test Strips) blood-glucose meter (ReliOn Micro #1 ea 02/28/21 Glucose Monitor) glimepiride 1 mg tablet See Rx Instructions .Route 1 .COMPLEX #90 tabs albuterol sulfate 90 mcg/actuation 2 puff inhalation Q 6H PRN 04/04/24 aerosol inhaler (Ventolin HFA) shortness of breath or wheezing #8.5 grams budesonide-formoterol HFA 80 1 inh inhalation BID #10. 2 grams 04/04/24 mcg-4.5 mcg/actuation aerosol inhaler (Symbicort) methocarbamol 500 mg tablet 500 mg PO Q6H PRN muscle s pasm #20 10/20/24 tabs methylprednisolone 4 mg tablets in See Rx Instructions PO .COMPLEX 10/20/24 a dose pack (Medrol (Kwaku)) #21 ea Allergies Allergy/AdvReac Type Severity Reaction Status Date / Time Penicillins Allergy Unknown unknown Verified 10/20/24 16:07 Review of Systems General: Reports: 10 or more systems reviewed and unremarkable except in HPI and below Const: Denies: fever(s) or chills Eyes: Denies: change in vision or blurry vision ENMT: Denies: throat pain or mouth pain Card: Denies: chest pain or palpitations Resp: Denies: dyspnea or productive cough GI: Denies: abdominal pain, nausea or vomiting Musc: Reports: back pain, extremity pain and limited range of motion; Denies: neck pain, extremity swelling, joint pain, joint swelling, joint redness or joint stiffness Skin/Breast: Denies: rash or pruritus Neuro: Denies: headache(s) or numbness in extremities Psych: Denies: anxiety or depression PFSH ED PFSH: Medical History GERD (gastroesophageal reflux disease) Gastritis Hx of gastric ulcer Borderline high blood pressure Diabetes type 2, uncontrolled Vomiting and diarrhea Contusion of lower back Weight loss, unintentional Family history of diabetes mellitus Father and two siblings Asthma Surgical History No pertinent past surgical history Family History Father Diabetes Chronic kidney disease (CKD) Amputated below knee Mother Heart problem Social History Smoking and tobacco/nicotine status: never used tobacco/nicotine Second hand smoke exposure: Yes Alcohol intake: current Alcohol intake frequency: holidays/special occasions only Substance/Drug Use: current Substance/Drug use frequency: few times a month Lives independently: Yes Household members: spouse and children Housing: House Marital status: Number of children: 2 Highest education level completed: High School Graduate service: No Current occupational status: employed Do you think of yourself as: Straight/Heterosexual Physical Exam Const: COMMON NORMALS: no acute distress, average body habitus and patient oriented x3 HENMT: COMMON NORMALS: normocephalic HEAD & SCALP: normocephalic Neck/C-Spine: COMMON NORMALS: full ROM and no lymphadenopathy Lymph: LYMPHATIC: no lymphadenopathy noted Chest: COMMONS NORMALS: normal inspection of the chest and normal palpation of the breasts BREAST/AXILLA PALPATION: Yes normal palpation of the breasts Resp: COMMON NORMALS: normal respiratory effort Cardio: COMMON NORMALS: regular rate and regular rhythm RATE: regular rate RHYTHM: regular rhythm GI: COMMON NORMALS: Normal to inspection, nondistended, normoactive bowel so unds present and Soft to palpation PALPATION: Yes Soft to palpation : COMMON NORMALS: Yes no CVA tenderness BLADDER/KIDNEY EXAM: Yes no CVA tenderness Back/Pelvis: COMMON NORMALS: no CVA tenderness THORACIC SPINE/UPPER BACK: Yes paraspinal muscle tenderness Thoracic paraspinal muscle tenderness: right LUMBAR SPINE/LOWER BACK: Yes straight leg raise positive left PELVIS: Yes buttocks normal SACROILIAC JOINTS: Yes SI joint(s) abnormal SI joint details: tender to palpation (right) Extremity: COMMON NORMALS: normal to inspection and full ROM Neuro: COMMON NORMALS: patient oriented x3 Psych: COMMON NORMALS: mental status grossly normal and Normal thought process present THOUGHT PROCESS: Normal thought process present Skin: COMMON NORMALS: no rashes or lesions noted and no wounds GENERAL SKIN EXAM: no rashes or lesions noted Course Vital Signs: Vital signs: Vital Signs Temperature 97.3 F L 10/20/24 16:01 Pulse Rate 101 H 10/20/24 18:13 Respiratory Rate 16 10/20/24 18:13 Blood Pressure 136/73 10/20/24 18:13 Pulse Oximetry 95 10/20/24 18:13 Oxygen Delivery Me thod Room Air 10/20/24 16:01 MDM - Back Pain/Injury Medical Decision Making Patient is 34-year-old male with type 2 diabetes. He was lifting something heavy, and when he pulled his right arm back, he noted pain in his right SI joint and along his lumbar spine. On physical examination these are paraspinous tenderness on L1, L2, with muscle spasming, and pinpoint tenderness over the right SI. There is no need for radiological concerns since there is no midline tenderness. He does not have any bowel or bladder incontinence, or saddle anesthesia, and therefore ruling out cauda equina. He will be given analgesic here, back exercises, and continued care with Medrol Dosepak, and Robaxin. No radiology studies performed this visit Discharge Plan Discharge Patient Disposition: Home Clinical Impression: Sciatica Qualifiers: Laterality: right Qualified Code(s): M54.31 - Sciatica, right side Condition: Stable Prescriptions: New methocarbamol 500 mg tablet 500 mg PO Q6H PRN (Reason: muscle spasm) Qty: 20 0RF methylprednisolone [Medrol (Kwaku)] 4 mg tablets,dose pack See Rx Instructions .ROUTE .COMPLEX Qty: 21 0RF Rx Instructions: for 6 days No Action (DME) blood-glucose meter [ReliOn Micro Glucose Monitor] Misc See Rx Instructions .Route Qty: 1 0RF Rx Instructions: Check BS 4 times a day (DME) ReliOn Prime Test Strips Strip See Rx Instructions .Route Qty: 100 3RF Rx Instructions: As directed budesonide-formoterol [Symbicort] 80-4.5 mcg/actuation HFA aerosol inhaler 1 inh inhalation BID Qty: 10.2 3RF albuterol sulfate [Ventolin HFA] 90 mcg/actuation HFA aerosol inhaler 2 puff inhalation Q6H PRN (Reason: shortness of breath or wheezing) Qty: 8.5 3RF glimepiride 1 mg tablet See Rx Instructions .ROUTE .COMPLEX Qty: 90 3RF Dose Instruction: Take 1 tablet by mouth once daily Rx Instructions: Take 1 tablet by mouth once daily Discharge Orders: Discharge ED (Routine); Ordered 10/20/24 Ordered By: Dang Srivastava Referrals: Alan Quiroz MD [Primary Care Provider, Family Practice] Discharge Diet: Usual diet Discharge Activity: Limit activity as instructed Patient Instructions: Sciatica (ED), Lower Back Exercises (ED), Patient Portal & Javier Instructions Activity Restrictions/Additional Instructions: Left over 10 pounds x 2 weeks Take medication as prescribed. Side effects as we discussed Follow-up with your regular primary care physician. It is important to go over this visit, and any additional concerns/strategies for your back. 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
[2024-10-20] MEDS: dexamethasone 10 mg/mL INJ IM (18:11)
[2024-10-20] MEDS: ketorolac 30 mg/mL INJ IM (18:11)
[2024-10-20] MEDS: orphenadrine 30 mg/mL Inj 2 mL 60 MG IM (18:12)
[2024-10-20 18:13] VITALS: BP 136/73; PULSE 101; RESP 16; O2SAT 95
== END 2024-10-20 18:13 | disposition home or self-care (01) ==
PROVIDERS: Emergency Provider Physician Assistant; PCP Family Medicine
DX: M54.31 Sciatica, right side (principal); E11.9 Type 2 diabetes mellitus without complications
CPT/HCPCS: 96372; 99284; J1100; J1885; J2360